=== PATIENT | male | born 1955 | race Caucasian/White ===

== ENCOUNTER 2018-01-07 21:21 | Inpatient (IN) | payer SELFPAY ==
[~2018-01-07 21:21] MED LIST: LIDOCAINE 2% INJ-PF (20 MG/ML) 2 ML AMPUL ONE; PHENYLEPHRINE HCL INJ/PF 10 MG/1 ML SDV ONE; ROCURONIUM BROMIDE INJ 50 MG/5 ML VIAL IV ONE; SUCCINYLCHOLINE CHLORIDE INJ 200 MG/10 ML VIAL ONE
[2018-01-07] MEDS ORDERED: NORMAL SALINE 1000 ML 1,000 ML IV ONE (21:32)
[2018-01-07] MEDS ORDERED: PIPERACILLIN/TAZOBACTAM 3.375 GM VIAL IV ONE (21:32)
--- NOTE | 2018-01-07 21:43 | ER Document Report ---
ED General - General Stated Complaint: BLOOD PRESSURE ISSUES Time Seen by Provider: 01/07/18 21:31 Cannot obtain history due to: Unstable vital signs, Altered mental status Notes: Patient is a 62-year-old male without chronic medical problems who presents with pallor, confusion and hypotension. The patient apparently had an appendectomy at an outpatient center facility with [facility] earlier this morning at approximately 9 AM. He was subsequently discharged. Per EMS, the patient's had reported to them that he was becoming more lethargic and pale throughout the day. She eventually contacted EMS when he was having difficulty responding to her. The patient himself is unable to provide any meaningful history. - Related Data Allergies/Adverse Reactions: No Known Allergies Allergy (Verified 01/07/18 21:50) Past Medical History - General Information source: Emergency Med Personnel Cannot obtain history due to: Unstable vital signs, Altered mental status - Social History Smoking Status: Unknown if Ever Smoked Frequency of alcohol use: None Drug Abuse: None Lives with: Spouse/Significant other Family History: Reviewed & Not Pertinent Review of Systems - Review of Systems Notes: Constitutional: Negative for fever. HENT: Negative for sore throat. Eyes: Negative for visual changes. Cardiovascular: Negative for chest pain. Respiratory: Negative for shortness of breath. Gastrointestinal: Positive for abdominal pain Genitourinary: Negative for dysuria. Musculoskeletal: Positive for diffuse back pain Skin: Negative for rash. Neurological: Negative for headaches, weakness or numbness. 10 point ROS negative except as marked above and in HPI. Physical Exam - Vital signs Vitals: Resp 29 H 01/07/18 21:23 Interpretation: Hypotensive, Tachycardic Notes: PHYSICAL EXAMINATION: GENERAL: Appears extremely ill, pale, diaphoretic and listless. HEAD: Atraumatic, normocephalic. EYES: Pupils equal round and reactive to light, extraocular movements intact, sclera anicteric, conjunctiva are pale. ENT: nares patent, diffuse oropharyngeal pallor. Dry mucous membranes. NECK: Normal range of motion, supple without lymphadenopathy LUNGS: Breath sounds clear to auscultation bilaterally and equal. No wheezes rales or rhonchi. HEART: Regular tachycardia without murmurs ABDOMEN: Distended abdomen, diffusely tender to palpation with rigidity. Diffuse guarding throughout. Consistent with a surgical abdomen. Positive FAST exam in all 3 quadrants. EXTREMITIES: no pitting or edema. No cyanosis. NEUROLOGICAL: No focal neurological deficits. Moves all extremities spontaneously and on command. PSYCH: Lethargic but oriented 3 SKIN: Pale, cool skin Course - Re-evaluation Re-evalutation: 01/07/18 21:35 Patient presents in hypovolemic, hemorrhagic shock. Immediately with the patient's bedside as soon as he came in the door with EMS. I noted immediate that the patient is pale, diaphoretic, listless and tachycardic. EMS reports that his initial systolic blood pressure was 70 systolic. We initially established one additional point of IV access family EMS that are reestablished. I immediately performed a bedside fast examination which showed gross blood in all 3 quadrants on FAST examination. A mass transfusion protocol was immediately initiated. I immediately contacted the surgeon watermelon inspector Dr. Baker and asked him to immediately come to the bedside has the patient is actively exsanguinating and requires immediate surgical intervention. 01/07/18 21:43 Patient continues to be quite listless, tachycardia is improving however with additional. Mass transfusion is being prepared. IV Zosyn was being hung for operative planning. I will continue to reassess the patient at regular intervals. He does not require immediate airway management at this time point. 01/07/18 22:01 Patient is having some mild deterioration of his blood pressure down to 96 and 67, does persist with mild tachycardia at 102 currently. He continues to be lethargic although wakes to voice. He has had one episode of vomiting. Awaiting mass transfusion to arrive. Dr. card is planning to take the patient to the operating room shortly. Will continue to monitor closely. - Vital Signs Vital signs: Temp Pulse Resp BP Pulse Ox 98.2 F 82 22 H 129/74 H 100 01/08/18 00:52 01/08/18 00:52 01/08/18 03:15 01/08/18 03:15 01/08/18 03:15 - Laboratory Result Diagrams: 01/08/18 00:41 01/08/18 01:44 Laboratory results interpreted by me: 01/07/18 01/07/18 01/07/18 21:30 21:31 21:31 WBC 26.1 H RBC 3.19 L Hgb 10.0 L Hct 29.8 L Seg Neuts % (Manual) 87 H Lymphocytes % (Manual) 4 L Abs Neuts (Manual) 22.7 H Abs Monocytes (Manual) 2.3 H POC Glucose 280 H Crossmatch See Detail - EKG Interpretation by Me Additional EKG results interpreted by me: 01/08/18 03:45 Sinus tachycardia. Rate 106. No ST elevations or depressions. QTC is 486. Critical Care Note - Critical Care Note Total time excluding time spent on procedures (mins): 35 Comments: Critical care time spent obtaining history from patient or surrogate, discussions with consultants, development of treatment plan with patient or surrogate, evaluation of patient's response to treatment, examination of patient , ordering and performing treatments and interventions, ordering and review of laboratory studies, re-evaluation of patient's condition, ordering and review of radiographic studies and review of old charts Discharge - Discharge Clinical Impression: Hemorrhagic shock Post-op bleeding Qualifiers: Surgical complication system/body Area: circulatory system Procedure type: non- circulatory Qualified Code(s): I97.620 - Postprocedural hemorrhage of a circulatory system organ or structure following other procedure Altered mental status Qualifiers: Altered mental status type: somnolence Qualified Code(s): R40.0 - Somnolence Condition: Critical Disposition: ADMITTED INPATIENT Admitting Provider: Surgicalist Unit Admitted: OR
[2018-01-07] MEDS ORDERED: FENTANYL CITRATE INJ/PF 100 MCG/2 ML AMPUL ONE ×2 (22:07→22:08)
[2018-01-07 22:08] LABS: HEMATOCRIT 29.8 % (37.9-51.0); MEAN CORPUSCULAR HEMOGLOBIN 31.3 pg (27.0-33.4); MEAN CORPUSCULAR HGB CONC 33.4 g/dL (32.0-36.0); MEAN CORPUSCULAR VOLUME 94 fl (80-97); PLATELET COUNT 289 10^3/uL (150-450); RED BLOOD COUNT 3.19 10^6/uL (4.35-5.55); RED CELL DISTRIBUTION WIDTH 13.5 % (11.5-14.0); WHITE BLOOD COUNT 26.1 10^3/uL (4.0-10.5)
[2018-01-07] MEDS ORDERED: MIDAZOLAM 2 MG/2 ML INJ ONE (22:08)
[2018-01-07] MEDS ORDERED: PROPOFOL INJ 200 MG/20 ML VIAL IV ONE (22:08)
[2018-01-07] MEDS ORDERED: HYDROMORPHONE HCL INJ/PF 2 MG/ML AMPULE ONE (22:09)
[2018-01-07] MEDS ORDERED: KETAMINE HCL INJ 500 MG/10 ML VIAL ONE (22:09)
[2018-01-07] MEDS ORDERED: EPHEDRINE SULFATE INJ 50 MG/1 ML AMPULE ONE (22:21)
[2018-01-07 22:39] LABS: ABSOLUTE MONOCYTES # (MANUAL) 2.3 10^3/uL (0.1-1.4); ABSOLUTE NEUTROPHILS# (MANUAL) 22.7 10^3/uL (1.7-8.2); BASOPHILS % (MANUAL) 0 % (0-2); EOSINOPHILS % (MANUAL) 0 % (0-6); LYMPHOCYTES % (MANUAL) 4 % (13-45); MONOCYTES % (MANUAL) 9 % (3-13); PLATELET COMMENT ADEQUATE; SEGMENTED NEUTROPHILS % (MAN) 87 % (42-78); TOTAL CELLS COUNTED 100; TOXIC GRANULATION SLIGHT
[2018-01-07 23:09] LABS: ALANINE AMINOTRANSFERASE 33 U/L (21-72); ALBUMIN 3.2 g/dL (3.5-5.0); ALKALINE PHOSPHATASE 44 U/L (38-126); ASPARTATE AMINO TRANSFERASE 27 U/L (17-59); BILIRUBIN,DIRECT 0.5 mg/dL (0.0-0.4); BILIRUBIN,TOTAL 0.6 mg/dL (0.2-1.3); BLOOD UREA NITROGEN 19 mg/dL (7-20); CALCIUM 8.5 mg/dL (8.4-10.2); CARBON DIOXIDE 17 mmol/L (22-30); CHLORIDE 105 mmol/L (98-107); GLUCOSE 205 mg/dL (75-110); POTASSIUM 4.1 mmol/L (3.6-5.0); TOTAL PROTEIN 6.1 g/dL (6.3-8.2)
[2018-01-07 23:15] LABS: ANION GAP 21 (5-19); SODIUM 143.2 mmol/L (137-145)
[2018-01-07] MEDS ORDERED: SUGAMMADEX SODIUM 200 MG/2 ML SDV IV ONE (23:31)
[2018-01-08] MEDS ORDERED: ONDANSETRON HCL INJ/PF 4 MG/2 ML SDV IV PRN (00:16)
[2018-01-08] MEDS ORDERED: NORMAL SALINE 1000 ML 1,000 ML IV ONE (00:16)
--- NOTE | 2018-01-08 00:16 | PDOC H&P ---
History of Present Illness Admission Date/PCP: 01/07/18 22:05 Patient complains of: lightheadedness with Nausea History of Present Illness: FEDE DOMINGO is a 62 year old male who had an emergency laparoscopic appendectomy at 9 am today at [facility] in [place]. He was apparently stable when he was discharge at around noontime according to his . However, on the way home patient felt lightheaded and nauseated which got worse at home. Broght to ED by EMT with BP 70 systolic and tachycardic. claims patient was confused when she called 911. Noted to be very pale in the ED and after a liter of IV Fluids BP noted to be 100 sys and patient more oriented but still with nausea. Past Medical History Past Medical History: HE WAS LAST SEEN BY A PHYSICIAN OVER 10 YEARS AGO. Medical History: None Past Surgical History Past Surgical History: Reports: None Social History Smoking Status: Unknown if Ever Smoked Family History Family History: Reviewed & Not Pertinent Parental Family History Reviewed: Yes Children Family History Reviewed: No Sibling(s) Family History Reviewed.: No Medication/Allergy Allergies/Adverse Reactions: No Known Allergies Allergy (Verified 01/07/18 21:50) Review of Systems Constitutional: PRESENT: weakness Eyes: PRESENT: other - NO VISUAL/HEARING CHANGES Cardiovascular: PRESENT: other - NO CHEST PAINS Respiratory: PRESENT: hemoptysis Gastrointestinal: PRESENT: abdominal pain, nausea, vomiting Genitourinary: PRESENT: other - NO DYSURIA Integumentary: PRESENT: other - NO RASH Neurological: PRESENT: confusion, weakness, other - LIGHT HEADEDNESS Physical Exam Vital Signs: Temp Pulse Resp BP Pulse Ox 98.1 F 20 112/61 99 01/07/18 22:18 01/07/18 22:17 01/07/18 22:18 01/07/18 22:17 General appearance: PRESENT: severe distress Head exam: PRESENT: atraumatic Eye exam: PRESENT: conjunctiva pale Mouth exam: PRESENT: dry mucosa Neck exam: PRESENT: full ROM Respiratory exam: PRESENT: clear to auscultation mitch Cardiovascular exam: PRESENT: tachycardia Pulses: PRESENT: other - decrease radial pulse Vascular exam: PRESENT: pallor GI/Abdominal exam: PRESENT: distended, soft, tenderness - diffuse Rectal exam: PRESENT: deferred Extremities exam: PRESENT: full ROM Musculoskeletal exam: PRESENT: full ROM Neurological exam: PRESENT: alert, oriented to person, oriented to place, oriented to time, oriented to situation Psychiatric exam: PRESENT: anxious Skin exam: PRESENT: pallor Results Laboratory Results: 01/07/18 22:10 01/07/18 22:10 Sodium 143.2 Potassium 4.1 Chloride 105 Carbon Dioxide 17 L Anion Gap 21 H BUN 19 Creatinine 1.43 H Est GFR ( Amer) > 60 Est GFR (Non-Af Amer) 50 L Glucose 205 H Calcium 8.5 Total Bilirubin 0.6 AST 27 ALT 33 Alkaline Phosphatase 44 Total Protein 6.1 L Albumin 3.2 L Assessment & Plan - Diagnosis (2) Post-op bleeding Qualifiers: Surgical complication system/body Area: circulatory system Procedure type: non-circulatory Qualified Code(s): I97.620 - Postprocedural hemorrhage of a circulatory system organ or structure following other procedure Is this a current diagnosis for this admission?: Yes - Time Time Spent: 30 to 50 Minutes - Inpatient Certification Medical Necessity: Need For IV Fluids, Need for IV Antibiotics, Need for Surgery - Plan Summary Plan Summary: Transfuse IV antibiotics To OR MAGGIE for laparoscopic control of bleeder
[2018-01-08] MEDS ORDERED: PIPERACILLIN/TAZOBACTAM 3.375 GM VIAL IV SCH (00:30)
[2018-01-08 00:52] LABS: HEMATOCRIT 34.7 % (37.9-51.0); HEMOGLOBIN 11.8 g/dL (13.5-17.0); MEAN CORPUSCULAR HEMOGLOBIN 30.1 pg (27.0-33.4); MEAN CORPUSCULAR HGB CONC 33.9 g/dL (32.0-36.0); PLATELET COUNT 184 10^3/uL (150-450); RED CELL DISTRIBUTION WIDTH 13.9 % (11.5-14.0); WHITE BLOOD COUNT 18.6 10^3/uL (4.0-10.5)
[2018-01-08 00:55] LABS: INTERNATIONAL RATION (INR) 1.12
[2018-01-08 00:56] LABS: PARTIAL THROMBOPLASTIN TIME 34.2 SEC (23.5-35.8)
[2018-01-08 01:15] LABS: MEAN CORPUSCULAR VOLUME 89 fl (80-97)
[2018-01-08 01:17] LABS: ABSOLUTE LYMPHOCYTES# (MANUAL) 0.6 10^3/uL (0.5-4.7); ABSOLUTE MONOCYTES # (MANUAL) 1.1 10^3/uL (0.1-1.4); ABSOLUTE NEUTROPHILS# (MANUAL) 16.9 10^3/uL (1.7-8.2); BASOPHILS % (MANUAL) 0 % (0-2); EOSINOPHILS % (MANUAL) 0 % (0-6); LYMPHOCYTES % (MANUAL) 3 % (13-45); MONOCYTES % (MANUAL) 6 % (3-13); SEGMENTED NEUTROPHILS % (MAN) 91 % (42-78); TOTAL CELLS COUNTED 100
[2018-01-08] MEDS ORDERED: PIPERACILLIN/TAZOBACTAM 3.375 GM VIAL IV PRN (01:19)
[2018-01-08 01:21] LABS: ANISOCYTOSIS SLIGHT; BURR CELLS SLIGHT; PLATELET COMMENT ADEQUATE; PLATELET LARGE PRESENT; TEAR DROP CELLS SLIGHT; TOXIC VACUOLATION PRESENT
[2018-01-08] MEDS ORDERED: PIPERACILLIN SODIUM/TAZOBACTAM 3.375 GM in NORMAL SALINE 100 ML IV ONE (01:30)
--- NOTE | 2018-01-08 01:32 | RADIOLOGY REPORT (SQ) ---
EXAM DESCRIPTION: XR CHEST 1 VIEW CLINICAL HISTORY: 62 years Male, post 0p COMPARISON: None. NUMBER OF VIEWS/TECHNIQUE: 1/AP FINDINGS: Adequate lung volume, clear parenchyma, small effusion/obscuration of the left costophrenic angle, normal cardiac silhouette, and intact bony thorax. IMPRESSION: Small left pleural effusion.
[2018-01-08 02:12] LABS: ANION GAP 14 (5-19); BLOOD UREA NITROGEN 21 mg/dL (7-20); CARBON DIOXIDE 23 mmol/L (22-30); CHLORIDE 109 mmol/L (98-107); GLUCOSE 141 mg/dL (75-110); POTASSIUM 4.9 mmol/L (3.6-5.0); SODIUM 145.8 mmol/L (137-145)
[2018-01-08] MEDS: MORPHINE SULFATE 10 MG/ML INJ IV PRN ×5 (03:59→21:54)
--- NOTE | 2018-01-08 07:15 | OPERATIVE REPORT E ---
Operative Report NAME: FEDE DOMINGO : 1955 AGE: 62Y DATE OF SURGERY: 01/06/18 ROOM: 609 PREOPERATIVE DIAGNOSIS: Bleeding post-laparoscopic appendectomy with hemorrhagic shock. POSTOPERATIVE DIAGNOSIS: Bleeding post-laparoscopic appendectomy with hemorrhagic shock. OPERATION: Diagnostic laparoscopy and control of bleeding. SURGEON: JERI HOANG M.D. ANESTHESIA: General. INDICATIONS: This is a 62-year-old male who underwent laparoscopic appendectomy this morning at 9 a.m. at [facility] in [place]. The patient subsequently discharged 2-3 hours later and appeared to be stable according to his . However, on the way home the patient noted to have nausea and worsening lightheadedness, and then brought to the ED and noted to have blood pressure of 70 systolic. He was given bolus fluids with 1-2 L and the blood pressure went up to about 100 systolic, and remained tachycardic. On the way to the OR, he had a unit of packed cells. DESCRIPTION OF PROCEDURE: After adequate general anesthesia, the patient was placed in a supine position and the abdomen prepped and draped in the usual sterile fashion. Appropriate time-out was called. Next, the incision at the umbilicus was then opened with a 15-blade and the fascia suture also divided with the blade over a hemostat. Following this, a Faustina trocar was inserted into the abdominal cavity through the same site and CO2 insufflated to a pressure of 15 mmHg. The 2 other trocar sites at the suprapubic and the left lower quadrant were all then opened and a 5 mm trocar placed at the suprapubic and a 12 mm in the left lower quadrant under direct vision. The patient noted to have a lot of clots in the abdominal cavity, and these were then suctioned. The patient had about 300-500 mL of blood clots. By the time we got to the area of the appendectomy site, there was a small pumper, which appears to be coming from the appendiceal mesentery. Several clips were placed and the bleeding was controlled. It was further lifted up with the Ana and a couple of clips were placed underneath. The appendiceal stump, however, looks good and without any bleeding. There appears to be another adhesion towards the cecum, and this was left in intact. The cecum does not look distended. Further suctioning of blood clots around the abdominal cavity was then performed. No other evidence of bleeding noted. A small piece of Surgicel and 4 x 4's and *------* was placed to buttress the area where the bleeder was. All the trocars were then removed and the CO2 allowed to come out of the trocars. Prior to removal of the trocars, the abdominal cavity was inspected, including the stomach, and no evidence of obvious abnormalities noted. The stomach though appears to be slightly distended. The patient did have an episode of bloody oropharyngeal catheter drainage, though this appears to be quite relatively small. After all the trocars were removed, the fascial defect at the infraumbilical area was then controlled with a [id number] suture using 0 Vicryl. A single suture at the area of the left lower quadrant was used to close the anterior fascia in a simple fashion. All the skin incisions were then closed with a running subcuticular 4-0 Vicryl and tied. Dermabond was used as a dressing. The patient tolerated procedure well. Needle, instrument, and sponge counts were all correct. Estimated blood loss about 30 mL. The patient did have about 300-500 mL of blood clots in the abdominal cavity. The patient then brought to the intensive care unit in guarded condition. DICTATING PHYSICIAN: JERI HOANG M.D. [id number] WINY#: [id number] ID: [id number] JOB#: [id number] ACCT: [id number] cc:JERI HOANG M.D. >
[2018-01-08 08:06] LABS: ABSOLUTE BASOPHILS # (AUTO) 0.1 10^3/uL (0.0-0.2); ABSOLUTE LYMPHOCYTES (AUTO) 1.1 10^3/uL (0.5-4.7); ABSOLUTE MONOCYTES (AUTO) 1.3 10^3/uL (0.1-1.4); ABSOLUTE NEUT (AUTO) 13.8 10^3/uL (1.7-8.2); BASOPHILS % (AUTO) 0.4 % (0-2); EOSINOPHILS % (AUTO) 0.1 % (0-6); HEMATOCRIT 29.6 % (37.9-51.0); HEMOGLOBIN 10.4 g/dL (13.5-17.0); LYMPHOCYTES % (AUTO) 6.7 % (13-45); MEAN CORPUSCULAR HEMOGLOBIN 31.2 pg (27.0-33.4); MEAN CORPUSCULAR HGB CONC 35.2 g/dL (32.0-36.0); MEAN CORPUSCULAR VOLUME 88 fl (80-97); MONOCYTES % (AUTO) 7.8 % (3-13); PLATELET COUNT 160 10^3/uL (150-450); RED BLOOD COUNT 3.34 10^6/uL (4.35-5.55); RED CELL DISTRIBUTION WIDTH 14.4 % (11.5-14.0); TOTAL CELLS COUNTED % (AUTO) 100 %; WHITE BLOOD COUNT 16.3 10^3/uL (4.0-10.5)
[2018-01-08] MEDS: NORMAL SALINE 1000 ML 1,000 ML IV PRN ×2 (08:56→15:51)
[2018-01-08] MEDS: PIPERACILLIN SODIUM/TAZOBACTAM 3.375 GM in NORMAL SALINE 100 ML IV SCH ×3 (08:56→21:52)
[2018-01-08] MEDS: FAMOTIDINE INJ/PF 20 MG/2 ML SDV IV SCH ×2 (08:58→21:53)
--- NOTE | 2018-01-08 09:01 | EKG REPORT ---
SEVERITY:- ABNORMAL ECG - SINUS TACHYCARDIA PROBABLE LEFT ATRIAL ABNORMALITY BORDERLINE T ABNORMALITIES, ANT-LAT LEADS, CLINICAL CORRELATION NEEDED BORDERLINE PROLONGED QT INTERVAL : Confirmed by: Fred Valdes MD 08-Jan-2018 09:01:07
--- NOTE | 2018-01-08 18:45 | PDOC PROGRESS REPORT ---
Subjective Progress Note for:: 01/08/18 Subjective:: Minimal incisional pains. Feels a lot better post laparoscopic clipping of appendiceal artery bleed last night. Had laparoscopic appendectomy for acute appendicitis yesterday at 9 am at [facility] in [place] [facility]. Discharged apparently stable but patient got light headed and confused on the way home to [place]. Reason For Visit: BLEEDING,POST LAPAROSCOPIC APPENDECTOMY Physical Exam Vital Signs: Temp Pulse Resp BP Pulse Ox 98.6 F 90 26 H 144/66 H 98 01/08/18 18:00 01/08/18 08:41 01/08/18 18:05 01/08/18 18:05 01/08/18 18:05 Intake & Output 01/07/18 01/08/18 01/09/18 06:59 06:59 06:59 Intake Total 2322 4280 Output Total 2350 1100 Balance -28 3180 Weight 90.1 kg Exam: Abdomen is soft with minimal incisional tenderness. All incisions are clean and dry. Denies flatus yet but hungry. Results Laboratory Results: 01/08/18 07:36 01/08/18 01:44 01/07/18 01/08/18 01/08/18 22:10 00:41 00:41 WBC 18.6 H RBC 3.90 L Hgb 11.8 L Hct 34.7 L MCV 89 D MCH 30.1 MCHC 33.9 RDW 13.9 Plt Count 184 Seg Neutrophils % Not Reportable Lymphocytes % Not Reportable Monocytes % Not Reportable Eosinophils % Not Reportable Basophils % Not Reportable Absolute Neutrophils Not Reportable Absolute Lymphocytes Not Reportable Absolute Monocytes Not Reportable Absolute Eosinophils Not Reportable Absolute Basophils Not Reportable Sodium 143.2 Cancelled Potassium 4.1 Cancelled Chloride 105 Cancelled Carbon Dioxide 17 L Cancelled Anion Gap 21 H Cancelled BUN 19 Cancelled Creatinine 1.43 H Cancelled Est GFR ( Amer) > 60 Cancelled Est GFR (Non-Af Amer) 50 L Cancelled Glucose 205 H Cancelled Calcium 8.5 Cancelled Total Bilirubin 0.6 AST 27 ALT 33 Alkaline Phosphatase 44 Total Protein 6.1 L Albumin 3.2 L 01/08/18 01/08/18 01:44 07:36 WBC 16.3 H RBC 3.34 L Hgb 10.4 L Hct 29.6 L MCV 88 MCH 31.2 MCHC 35.2 RDW 14.4 H Plt Count 160 Seg Neutrophils % 85.0 H Lymphocytes % 6.7 L Monocytes % 7.8 Eosinophils % 0.1 Basophils % 0.4 Absolute Neutrophils 13.8 H Absolute Lymphocytes 1.1 Absolute Monocytes 1.3 Absolute Eosinophils 0.0 Absolute Basophils 0.1 Sodium 145.8 H Potassium 4.9 Chloride 109 H Carbon Dioxide 23 Anion Gap 14 BUN 21 H Creatinine 1.18 Est GFR ( Amer) > 60 Est GFR (Non-Af Amer) > 60 Glucose 141 H Calcium 8.0 L Total Bilirubin AST ALT Alkaline Phosphatase Total Protein Albumin Impressions: Chest X-Ray 01/08/18 00:21 IMPRESSION: Small left pleural effusion. Assessment & Plan - Diagnosis (2) Post-op bleeding Qualifiers: Surgical complication system/body Area: circulatory system Procedure type: non-circulatory Qualified Code(s): I97.620 - Postprocedural hemorrhage of a circulatory system organ or structure following other procedure Is this a current diagnosis for this admission?: Yes - Time Time Spent with patient: 15-24 minutes - Plan Summary Plan Summary: Start sips of clears. Continue IV antibiotics. Recheck labs in am. OOB Transfer out of ICU to [facility] Art/Zafar henry
[2018-01-08] MEDS ORDERED: NORMAL SALINE 1000 ML 1,000 ML IV PRN (19:17)
[2018-01-09] MEDS: MORPHINE SULFATE 10 MG/ML INJ IV PRN ×3 (02:04→21:23)
[2018-01-09] MEDS: PIPERACILLIN SODIUM/TAZOBACTAM 3.375 GM in NORMAL SALINE 100 ML IV SCH ×4 (02:07→21:20)
[2018-01-09 05:12] LABS: ALBUMIN 2.7 g/dL (3.5-5.0); ALKALINE PHOSPHATASE 37 U/L (38-126); ASPARTATE AMINO TRANSFERASE 16 U/L (17-59); BILIRUBIN,DIRECT 0.5 mg/dL (0.0-0.4); BLOOD UREA NITROGEN 11 mg/dL (7-20); CALCIUM 8.1 mg/dL (8.4-10.2); GLUCOSE 100 mg/dL (75-110); TOTAL PROTEIN 5.4 g/dL (6.3-8.2)
[2018-01-09 05:29] LABS: ALANINE AMINOTRANSFERASE 33 U/L (21-72); ANION GAP 8 (5-19); CARBON DIOXIDE 23 mmol/L (22-30); CHLORIDE 111 mmol/L (98-107); POTASSIUM 3.7 mmol/L (3.6-5.0); SODIUM 141.8 mmol/L (137-145)
[2018-01-09 06:09] LABS: ABSOLUTE BASOPHILS # (AUTO) 0.1 10^3/uL (0.0-0.2); ABSOLUTE LYMPHOCYTES (AUTO) 1.1 10^3/uL (0.5-4.7); ABSOLUTE MONOCYTES (AUTO) 0.7 10^3/uL (0.1-1.4); ABSOLUTE NEUT (AUTO) 9.4 10^3/uL (1.7-8.2); BASOPHILS % (AUTO) 0.6 % (0-2); EOSINOPHILS % (AUTO) 0.3 % (0-6); HEMATOCRIT 23.2 % (37.9-51.0); LYMPHOCYTES % (AUTO) 9.7 % (13-45); MEAN CORPUSCULAR HGB CONC 34.4 g/dL (32.0-36.0); MEAN CORPUSCULAR VOLUME 90 fl (80-97); MONOCYTES % (AUTO) 6.5 % (3-13); PLATELET COUNT 135 10^3/uL (150-450); RED BLOOD COUNT 2.58 10^6/uL (4.35-5.55); RED CELL DISTRIBUTION WIDTH 14.2 % (11.5-14.0); SEGMENTED NEUTROPHILS % (AUTO) 82.9 % (42-78); TOTAL CELLS COUNTED % (AUTO) 100 %; WHITE BLOOD COUNT 11.3 10^3/uL (4.0-10.5)
[2018-01-09] MEDS ORDERED: KETOROLAC TROMETHAMINE 10 MG TABLET PO PRN (10:07)
--- NOTE | 2018-01-09 10:11 | PDOC PROGRESS REPORT ---
Subjective Progress Note for:: 01/09/18 Subjective:: Sitting up in bed, no acute distress; mildly anxious; remains in ICU Reason For Visit: BLEEDING,POST LAPAROSCOPIC APPENDECTOMY Physical Exam Vital Signs: Temp Pulse Resp BP Pulse Ox 99.4 F 83 15 142/69 H 94 01/09/18 06:00 01/09/18 08:00 01/09/18 09:00 01/09/18 08:41 01/09/18 09:00 Intake & Output 01/08/18 01/09/18 01/10/18 06:59 06:59 06:59 Intake Total 2322 4280 Output Total 2350 1800 Balance - 2480 Weight 90.1 kg 92.8 kg General appearance: PRESENT: other - Mild anxiousness Respiratory exam: PRESENT: other - Diminished breath sounds bilaterally GI/Abdominal exam: PRESENT: other - Mildly distended; some bruising and operative sites; no peritoneal signs; some tenderness right lower quadrant Results Laboratory Results: 01/09/18 05:57 01/09/18 04:33 01/09/18 01/09/18 01/09/18 04:33 04:33 05:57 WBC Cancelled 11.3 H RBC Cancelled 2.58 L Hgb Cancelled 8.0 L D Hct Cancelled 23.2 L MCV Cancelled 90 MCH Cancelled 31.0 MCHC Cancelled 34.4 RDW Cancelled 14.2 H Plt Count Cancelled 135 L Seg Neutrophils % Cancelled 82.9 H Lymphocytes % Cancelled 9.7 L Monocytes % Cancelled 6.5 Eosinophils % Cancelled 0.3 Basophils % Cancelled 0.6 Absolute Neutrophils Cancelled 9.4 H Absolute Lymphocytes Cancelled 1.1 Absolute Monocytes Cancelled 0.7 Absolute Eosinophils Cancelled 0.0 Absolute Basophils Cancelled 0.1 Sodium 141.8 Potassium 3.7 Chloride 111 H Carbon Dioxide 23 Anion Gap 8 BUN 11 Creatinine 0.85 Est GFR ( Amer) > 60 Est GFR (Non-Af Amer) > 60 Glucose 100 Calcium 8.1 L Total Bilirubin 1.0 AST 16 L ALT 33 Alkaline Phosphatase 37 L Total Protein 5.4 L Albumin 2.7 L Impressions: Chest X-Ray 01/08/18 00:21 IMPRESSION: Small left pleural effusion. Assessment & Plan - Diagnosis (1) Post laparoscopic appendectomy bleeding Is this a current diagnosis for this admission?: Yes Plan: Patient remains hemodynamically stable although heart rate in the 90s currently. Clinically he is well perfused and making adequate urine. Hemoglobin down to 8.0; patient has had 2 units of packed cells per record. Recommendations: 1. We will keep patient on full liquids for the moment 2. Reduce narcotic use; increase use of Toradol 3. We will check CBC at 1400; if stable, and patient continues to do well, anticipate transfer to the floor. 4. Attempt to obtain medical records from [facility]
[2018-01-09] MEDS: KETOROLAC TROMETHAMINE INJ/PF 30 MG/1 ML SDV IV PRN ×2 (10:18→15:29)
[2018-01-09] MEDS: FAMOTIDINE INJ/PF 20 MG/2 ML SDV IV SCH ×2 (10:19→21:21)
[2018-01-09 14:11] LABS: HEMATOCRIT 22.1 % (37.9-51.0); MEAN CORPUSCULAR HEMOGLOBIN 31.6 pg (27.0-33.4); MEAN CORPUSCULAR HGB CONC 35.3 g/dL (32.0-36.0); MEAN CORPUSCULAR VOLUME 90 fl (80-97); PLATELET COUNT 135 10^3/uL (150-450); RED BLOOD COUNT 2.47 10^6/uL (4.35-5.55); RED CELL DISTRIBUTION WIDTH 14.6 % (11.5-14.0); WHITE BLOOD COUNT 10.6 10^3/uL (4.0-10.5)
[2018-01-09 14:13] LABS: HEMOGLOBIN 7.8 g/dL (13.5-17.0)
[2018-01-09] MEDS: DOCUSATE SODIUM 100 MG CAPSULE PO SCH (17:14)
[2018-01-10] MEDS: PIPERACILLIN SODIUM/TAZOBACTAM 3.375 GM in NORMAL SALINE 100 ML IV SCH ×2 (02:25→08:45)
[2018-01-10] MEDS: KETOROLAC TROMETHAMINE INJ/PF 30 MG/1 ML SDV IV PRN (02:25)
[2018-01-10] MEDS: DOCUSATE SODIUM 100 MG CAPSULE PO SCH (08:29)
[2018-01-10 09:28] LABS: ABSOLUTE BASOPHILS # (AUTO) 0.1 10^3/uL (0.0-0.2); ABSOLUTE EOSINOPHILS # (AUTO) 0.1 10^3/uL (0.0-0.6); ABSOLUTE LYMPHOCYTES (AUTO) 0.8 10^3/uL (0.5-4.7); ABSOLUTE MONOCYTES (AUTO) 0.5 10^3/uL (0.1-1.4); ABSOLUTE NEUT (AUTO) 7.6 10^3/uL (1.7-8.2); BASOPHILS % (AUTO) 0.6 % (0-2); EOSINOPHILS % (AUTO) 1.4 % (0-6); HEMATOCRIT 21.8 % (37.9-51.0); LYMPHOCYTES % (AUTO) 8.8 % (13-45); MEAN CORPUSCULAR HEMOGLOBIN 31.5 pg (27.0-33.4); MEAN CORPUSCULAR VOLUME 90 fl (80-97); MONOCYTES % (AUTO) 5.6 % (3-13); PLATELET COUNT 135 10^3/uL (150-450); RED BLOOD COUNT 2.42 10^6/uL (4.35-5.55); RED CELL DISTRIBUTION WIDTH 14.1 % (11.5-14.0); SEGMENTED NEUTROPHILS % (AUTO) 83.6 % (42-78); TOTAL CELLS COUNTED % (AUTO) 100 %; WHITE BLOOD COUNT 9.1 10^3/uL (4.0-10.5)
[2018-01-10] MEDS: FAMOTIDINE INJ/PF 20 MG/2 ML SDV IV SCH (09:28)
[2018-01-10 09:42] LABS: ALANINE AMINOTRANSFERASE 27 U/L (21-72); ALBUMIN 3.3 g/dL (3.5-5.0); ALKALINE PHOSPHATASE 40 U/L (38-126); ANION GAP 9 (5-19); ASPARTATE AMINO TRANSFERASE 36 U/L (17-59); BILIRUBIN,DIRECT 0.5 mg/dL (0.0-0.4); BILIRUBIN,TOTAL 0.7 mg/dL (0.2-1.3); BLOOD UREA NITROGEN 10 mg/dL (7-20); CALCIUM 8.7 mg/dL (8.4-10.2); CARBON DIOXIDE 28 mmol/L (22-30); CHLORIDE 109 mmol/L (98-107); GLUCOSE 99 mg/dL (75-110); POTASSIUM 3.8 mmol/L (3.6-5.0); TOTAL PROTEIN 6.6 g/dL (6.3-8.2)
[2018-01-10 09:44] LABS: HEMOGLOBIN 7.6 g/dL (13.5-17.0)
--- NOTE | 2018-01-10 12:43 | PDOC DISCHARGE SUMMARY ---
General - Admit/Disc Date/PCP Admission Date/Primary Care Provider: 01/07/18 22:05 Discharge Date: 01/10/18 - Discharge Diagnosis (1) Hemorrhagic shock Is this a current diagnosis for this admission?: Yes (2) Post laparoscopic appendectomy bleeding Is this a current diagnosis for this admission?: Yes (3) Post-op bleeding Is this a current diagnosis for this admission?: Yes - Additional Information Resuscitation Status: Full Code Discharge Diet: As Tolerated Discharge Activity: Balance Activity w/Rest, No Lifting Over 10 Pounds, No Lifting/Push/Pulling Home Medications: Docusate Sodium [Colace 100 mg Capsule] 100 mg PO BID capsule 01/10/18 History of Present Illness History of Present Illness: FEDE DOMINGO is a 62 year old male who is recently status post laparoscopic appendectomy at another institution. The patient presented to the emergency department in extremis. A FAST exam was found to be positive. The patient was taken to the operating room for emergent exploration. Hospital Course Hospital Course: In the operating room a large volume of hemoperitoneum was identified. Bleeding was found at the appendiceal artery. The bleeding was halted using laparoscopic methods. The patient was sent to the ICU in fair condition. Over the coming 2 days, the patient began ambulating and tolerating a diet. At this time the patient has reached maximal hospital benefit and is fit for discharge. Physical Exam Vital Signs: Temp Pulse Resp BP Pulse Ox 97.9 F 66 20 125/61 96 01/10/18 08:00 01/10/18 08:00 01/10/18 10:00 01/10/18 08:00 01/10/18 09:00 Intake & Output 01/09/18 01/10/18 01/11/18 06:59 06:59 06:59 Intake Total 4280 1612 100 Output Total 1800 1600 Balance 2480 12 100 Weight 92.8 kg 93.5 kg Results Laboratory Results: 01/10/18 09:06 01/10/18 09:06 01/09/18 01/10/18 01/10/18 14:00 09:06 09:06 WBC 10.6 H 9.1 RBC 2.47 L 2.42 L Hgb 7.8 L 7.6 L Hct 22.1 L 21.8 L MCV 90 90 MCH 31.6 31.5 MCHC 35.3 35.0 RDW 14.6 H 14.1 H Plt Count 135 L 135 L Seg Neutrophils % 83.6 H Lymphocytes % 8.8 L Monocytes % 5.6 Eosinophils % 1.4 Basophils % 0.6 Absolute Neutrophils 7.6 Absolute Lymphocytes 0.8 Absolute Monocytes 0.5 Absolute Eosinophils 0.1 Absolute Basophils 0.1 Sodium 146.0 H Potassium 3.8 Chloride 109 H Carbon Dioxide 28 Anion Gap 9 BUN 10 Creatinine 0.80 Est GFR ( Amer) > 60 Est GFR (Non-Af Amer) > 60 Glucose 99 Calcium 8.7 Total Bilirubin 0.7 AST 36 ALT 27 Alkaline Phosphatase 40 Total Protein 6.6 Albumin 3.3 L Impressions: Chest X-Ray 01/08/18 00:21 IMPRESSION: Small left pleural effusion. Qualifiers - * PATIENT BEING DISCHARGED WITH ANY OF THE FOLLOWING DIAGNOSIS: No Plan Discharge Plan: Discharge home. Diet: As tolerated. Activity: Nonstrenuous 2 weeks, no lifting more than 10 pounds 2 weeks. Follow-up with me in 2 weeks. Time Spent: Less than 30 Minutes
[2018-01-10 12:49] VITALS: BP 150/68
== END 2018-01-10 13:30 | disposition home or self-care (01) | DRG 907 ==
LOC: ER 21:21 → EH 22:05 → ICU 01-08 00:02
PROVIDERS: ADMIT Surgery; ATTEND Surgery
PROC: 30233N1 Transfusion of Nonautologous Red Blood Cells into Peripheral Vein, Percutaneous Approach (ICD-10-PCS; 2018-01-07)
PROC: 0W3P3ZZ Control Bleeding in Gastrointestinal Tract, Percutaneous Approach (ICD-10-PCS; principal; 2018-01-07 23:15)
DX: K91.841 Postprocedural hemorrhage of a digestive system organ or structure following other procedure (principal); K66.1 Hemoperitoneum; T81.19XA Other postprocedural shock, initial encounter; I95.1 Orthostatic hypotension; F44.89 Other dissociative and conversion disorders; Y83.6 Removal of other organ (partial) (total) as the cause of abnormal reaction of the patient, or of later complication, without mention of misadventure at the time of the procedure; Y92.810 Car as the place of occurrence of the external cause
CPT/HCPCS: 36415; 36430; 71045; 80048; 80053; 82962; 840; 85025; 85027; 85610; 85730; 86850; 86900; 86901; 86920; 93005; 93010; 94799; 96360; 99291; J0330; J1170; J1885; J2250; J2270; J2370; J2405; J2543; J2704; J3010; J3490; J7030; P9016; S0028

== ENCOUNTER → 2018-01-19 | Outpatient (CLI) | payer SELFPAY ==
[2018-01-19 16:49] LABS: APPEARANCE,URINE CLEAR; BILIRUBIN,URINE NEGATIVE (NEGATIVE); COLOR,URINE YELLOW; GLUCOSE, URINE NEGATIVE (NEGATIVE); KETONES,URINE NEGATIVE (NEGATIVE); LEUKOCYTE ESTERASE,URINE NEGATIVE (NEGATIVE); NITRITE,URINE NEGATIVE (NEGATIVE); PROTEIN,URINE NEGATIVE (NEGATIVE); URINE SPECIFIC GRAVITY 1.017; UROBILINOGEN,URINE NEGATIVE mg/dL (<2.0)
[2018-01-19 16:52] LABS: ABSOLUTE BASOPHILS # (AUTO) 0.1 10^3/uL (0.0-0.2); ABSOLUTE EOSINOPHILS # (AUTO) 0.1 10^3/uL (0.0-0.6); ABSOLUTE LYMPHOCYTES (AUTO) 1.4 10^3/uL (0.5-4.7); ABSOLUTE MONOCYTES (AUTO) 1.1 10^3/uL (0.1-1.4); ABSOLUTE NEUT (AUTO) 14.5 10^3/uL (1.7-8.2); BASOPHILS % (AUTO) 0.6 % (0-2); EOSINOPHILS % (AUTO) 0.6 % (0-6); HEMATOCRIT 30.9 % (37.9-51.0); HEMOGLOBIN 10.4 g/dL (13.5-17.0); MEAN CORPUSCULAR HEMOGLOBIN 29.6 pg (27.0-33.4); MEAN CORPUSCULAR HGB CONC 33.8 g/dL (32.0-36.0); MEAN CORPUSCULAR VOLUME 87 fl (80-97); MONOCYTES % (AUTO) 6.4 % (3-13); PLATELET COUNT 529 10^3/uL (150-450); RED BLOOD COUNT 3.53 10^6/uL (4.35-5.55); RED CELL DISTRIBUTION WIDTH 13.9 % (11.5-14.0); SEGMENTED NEUTROPHILS % (AUTO) 84.4 % (42-78); TOTAL CELLS COUNTED % (AUTO) 100 %; WHITE BLOOD COUNT 17.2 10^3/uL (4.0-10.5)
== END ==
LOC: OD 15:45
PROVIDERS: ATTEND Surgery
DX: R10.30 Lower abdominal pain, unspecified (principal); R30.0 Dysuria
CPT/HCPCS: 36415; 81001; 85025

== ENCOUNTER → 2018-01-23 | Outpatient (CLI) | payer SELFPAY ==
[2018-01-23 12:46] LABS: ABSOLUTE BASOPHILS # (AUTO) 0.1 10^3/uL (0.0-0.2); ABSOLUTE LYMPHOCYTES (AUTO) 0.7 10^3/uL (0.5-4.7); ABSOLUTE NEUT (AUTO) 11.7 10^3/uL (1.7-8.2); BASOPHILS % (AUTO) 0.5 % (0-2); EOSINOPHILS % (AUTO) 0.1 % (0-6); HEMATOCRIT 28.5 % (37.9-51.0); HEMOGLOBIN 9.8 g/dL (13.5-17.0); LYMPHOCYTES % (AUTO) 5.5 % (13-45); MEAN CORPUSCULAR HEMOGLOBIN 29.8 pg (27.0-33.4); MEAN CORPUSCULAR HGB CONC 34.4 g/dL (32.0-36.0); MEAN CORPUSCULAR VOLUME 87 fl (80-97); MONOCYTES % (AUTO) 7.7 % (3-13); PLATELET COUNT 551 10^3/uL (150-450); RED BLOOD COUNT 3.29 10^6/uL (4.35-5.55); RED CELL DISTRIBUTION WIDTH 14.2 % (11.5-14.0); SEGMENTED NEUTROPHILS % (AUTO) 86.2 % (42-78); TOTAL CELLS COUNTED % (AUTO) 100 %; WHITE BLOOD COUNT 13.6 10^3/uL (4.0-10.5)
== END ==
LOC: OD 11:50
PROVIDERS: ATTEND Physician Assistant Surgical
DX: D50.0 Iron deficiency anemia secondary to blood loss (chronic) (principal)
CPT/HCPCS: 36415; 85025

== ENCOUNTER 2018-01-24 09:07 | Inpatient (IN) | payer SELFPAY ==
--- NOTE | 2018-01-24 12:16 | RADIOLOGY REPORT (SQ) ---
EXAM DESCRIPTION: CT ABD/PELVIS WITH IV ORAL COMPLETED DATE/TIME: 01/24/2018 11:39 am REASON FOR STUDY: GENERALIZED ABDOMINAL PAIN R10.84 GENERALIZED ABDOMINAL PAIN D50.0 IRON DEFICIEN CY ANEMIA SECONDARY TO BLOOD LOSS (CHRONI Z90.49 ACQUIRED ABSENCE OF OTHER SPECIFIED PARTS OF DIGEST IV COMPARISON: None. TECHNIQUE: CT scan of the abdomen and pelvis performed using helical scanning technique with dynamic intravenous contrast injection. Patient drank oral contrast. Images reviewed with lung, soft tissue , and bone windows. Reconstructed coronal and sagittal MPR images reviewed. Delayed images for evalua tion of the urinary system also acquired. All images stored on PACS. All CT scanners at this facility use dose modulation, iterative reconstruction, and/or weight based d osing when appropriate to reduce radiation dose to as low as reasonably achievable (ALARA). [facility]: Dose Right [facility]: CareDose [facility]: Dose Right [facility]: Teradose 4D [facility]: Loco2 CONTRAST TYPE AND DOSE: contrast/concentration: Isovue 370.00 mg/ml; Total Contrast Delivered: 89.0 ml; Total Saline Delivered: 70.0 ml RENAL FUNCTION: Creatinine 0.8 RADIATION DOSE: CT Rad equipment meets quality standard of care and radiation dose reduction techniq ues were employed. CTDIvol: 8.4 - 9.8 mGy. DLP: 959 mGy-cm.. LIMITATIONS: None. FINDINGS: A peripheral rim enhancing abscess cavity is present in the right lower quadrant extending down into the pelvic cul-de-sac. This measures 10 cm craniocaudad by 10 cm transverse by 7 cm AP, b est shown on sagittal image 37 and coronal images 33-54. Surgical clips in the right lower quadrant post appendectomy are evident on coronal images 35 through 41. There is adjacent bowel wall thickening of small bowel without evidence of bowel obstruction. No free intraperitoneal air or fluid is seen. This report was called to Dr. Cobb 1130 hours, 01/24/2018. Percutaneous drainage of this abscess is planned for later today. LOWER CHEST: No significant findings. No nodules or infiltrates. LIVER: Normal size. No masses. No dilated ducts. SPLEEN: Normal size. No focal lesions. PANCREAS: No masses. No significant calcifications. No adjacent inflammation or peripancreatic fluid collections. Pancreatic duct not dilated. GALLBLADDER: No identified stones by CT criteria. No inflammatory changes to suggest cholecystitis. ADRENAL GLANDS: No significant masses or asymmetry. RIGHT KIDNEY AND URETER: No solid masses. No significant calcifications. No hydronephrosis or hyd roureter. LEFT KIDNEY AND URETER: No solid masses. No significant calcifications. No hydronephrosis or hydr oureter. AORTA AND VESSELS: No aneurysm. No dissection. Renal arteries, SMA, celiac without stenosis. RETROPERITONEUM: No retroperitoneal adenopathy, hemorrhage or masses. BOWEL AND PERITONEAL CAVITY: Abscess cavity in the right lower quadrant extending down into the pelvi c cul-de-sac. Patient drank oral contrast. Adjacent to the abscess, there are thick walled small waqas wel loops, best shown on axial images 58-68, without small bowel obstruction. Remainder the peritone al space and gastrointestinal tract is otherwise unremarkable. APPENDIX: Post appendectomy abscess as above PELVIS: Abscess as above. Bladder prostate rectum unremarkable. ABDOMINAL WALL: No masses. No hernias. BONES: No significant or acute findings. OTHER: No other significant finding. IMPRESSION: Abscess cavity in the right lower quadrant extending down into the pelvic cul-de-sac. TECHNICAL DOCUMENTATION: JOB ID: [id number] Quality ID # [id number]: Final reports with documentation of one or more dose reduction techniques (e.g., Au tomated exposure control, adjustment of the mA and/or kV according to patient size, use of iterative reconstruction technique) 2010 [employer]- All Rights Reserved Reading location - IP/workstation name: [email or web address]
[2018-01-24] MEDS ORDERED: ACETAMINOPHEN 325 MG TABLET PO PRN (12:37)
[2018-01-24] MEDS ORDERED: ACETAMINOPHEN 650 MG SUPP.RECT PR PRN (12:37)
[2018-01-24] MEDS ORDERED: RINGERS SOLUTION,LACTATED 1,000 ML IV PRN (12:39)
[2018-01-24] MEDS ORDERED: IPRATROPIUM/ALBUTEROL 0.5-2.5 MG/3 ML AMPUL NEB PRN (12:50)
[2018-01-24] MEDS ORDERED: ONDANSETRON HCL INJ/PF 4 MG/2 ML SDV IV PRN (12:50)
[2018-01-24] MEDS ORDERED: DEXTROSE 50%-WATER 25 GM/50 ML DISP.SYRIN IV PRN ×2 (12:50)
[2018-01-24] MEDS ORDERED: GLUCAGON,HUMAN RECOMB 1 MG INJ SUBCUT PRN (12:50)
[2018-01-24] MEDS ORDERED: DEXTROSE 40% GEL 15 GM TUBE PO PRN ×2 (12:50)
[2018-01-24] MEDS ORDERED: PIPERACILLIN/TAZOBACTAM 3.375 GM VIAL IV SCH (13:00)
[2018-01-24 13:32] LABS: ABSOLUTE BASOPHILS # (AUTO) 0.1 10^3/uL (0.0-0.2); ABSOLUTE EOSINOPHILS # (AUTO) 0.1 10^3/uL (0.0-0.6); ABSOLUTE LYMPHOCYTES (AUTO) 0.6 10^3/uL (0.5-4.7); ABSOLUTE MONOCYTES (AUTO) 0.9 10^3/uL (0.1-1.4); BASOPHILS % (AUTO) 0.8 % (0-2); EOSINOPHILS % (AUTO) 0.5 % (0-6); HEMATOCRIT 26.7 % (37.9-51.0); HEMOGLOBIN 9.1 g/dL (13.5-17.0); LYMPHOCYTES % (AUTO) 6.5 % (13-45); MEAN CORPUSCULAR HEMOGLOBIN 29.4 pg (27.0-33.4); MEAN CORPUSCULAR HGB CONC 34.2 g/dL (32.0-36.0); MEAN CORPUSCULAR VOLUME 86 fl (80-97); MONOCYTES % (AUTO) 8.9 % (3-13); PLATELET COUNT 477 10^3/uL (150-450); SEGMENTED NEUTROPHILS % (AUTO) 83.3 % (42-78); TOTAL CELLS COUNTED % (AUTO) 100 %; WHITE BLOOD COUNT 9.6 10^3/uL (4.0-10.5)
[2018-01-24 13:58] LABS: ALBUMIN 3.5 g/dL (3.5-5.0); ANION GAP 14 (5-19); BLOOD UREA NITROGEN 10 mg/dL (7-20); CALCIUM 9.2 mg/dL (8.4-10.2); CARBON DIOXIDE 26 mmol/L (22-30); CHLORIDE 99 mmol/L (98-107); GLUCOSE 95 mg/dL (75-110); PHOSPHORUS 4.5 mg/dL (2.5-4.5); POTASSIUM 4.4 mmol/L (3.6-5.0); SODIUM 138.6 mmol/L (137-145)
[2018-01-24] MEDS ORDERED: PIPERACILLIN SODIUM/TAZOBACTAM 3.375 GM in NORMAL SALINE 100 ML IV ONE (14:00)
[2018-01-24] MEDS ORDERED: VANCOMYCIN HCL INJ 500 MG VIAL IV SCH (14:00)
[2018-01-24] MEDS ORDERED: LIDOCAINE 1% INJ-PF (10 MG/ML) 30 ML SDV ONE (14:06)
[2018-01-24] MEDS ORDERED: MIDAZOLAM 2 MG/2 ML INJ ONE (14:06)
[2018-01-24] MEDS ORDERED: FENTANYL CITRATE INJ/PF 100 MCG/2 ML AMPUL ONE ×2 (14:06→14:09)
--- NOTE | 2018-01-24 15:44 | RADIOLOGY REPORT (SQ) ---
EXAM DESCRIPTION: CT GUIDED PERCUT DRAIN W/CATH COMPLETED DATE/TIME: 01/24/2018 3:23 pm REASON FOR STUDY: intra-abdominal abscess R10.84 GENERALIZED ABDOMINAL PAIN D50.0 IRON DEFICIENCY ANEMIA SECONDARY TO BLOOD LOSS (CHRONI Z90.49 ACQUIRED ABSENCE OF OTHER SPECIFIED PARTS OF DIGESTIV COMPARISON: CT abdomen pelvis 01/24/2018 TECHNIQUE: After obtaining informed consent and explaining the risks and benefits of conscious sedat ion,the patient agreed to the procedure. The patient was brought to the CT suite and was placed prone on the CT gurney. The patient was prepped and draped in the usual sterile fashion . Axial images we re obtained for targeting of thepelvic abscess. An appropriate access site was selected. IV conscious sedation was administered and physician direction by the registered nurse using 2 milligrams of Vers ed and 200 micrograms of fentanyl. Physiologic monitoring was provided before, during, and after rowdy tion. The total sedation time was 55 minutes. Documentation face to face time, the performing proceduralist, spent monitoring the patient: 20minute s. Noncontrasted CT of the liver was performed to localize an approach for the pelvic abscess drainage from the left trans gluteal approach. A percutaneous site was marked. Time out was performed. After skin prep and local lidocaine for skin and deep tissue anesthesia, an 18 gauge 15 cm needle wa s used to access the pelvic abscess from a left trans gluteal approach. Needle placement yielded fou l-smelling liquified hematoma. A sample of this material was sent for Gram stain, culture and sensit ivity. A 0.38 guidewire was placed through the 18 gauge needle into the abscess cavity, the tract dilated wi th a 10 Cymraes dilator, and a 10 Cymraes locking pigtail catheter was placed in the pelvic abscess cav ity coursing up towards the right lower quadrant. Catheter was secured with locking pigtail, and the adhesive device on the skin. Catheter was placed to an accordion suction bag with prompt return of 250 mL of purulent fluid. Post procedure CT demonstrates good placement of the pigtail catheter in t he right lower quadrant/ pelvic abscess. No immediate postprocedure complications. Total of 16.[address] fluoro was used. 93 CT Fluoroscopic images were obtained and saved to PACS. All CT scanners at this facility use dose modulation, iterative reconstruction, and/or weight based d osing when appropriate to reduce radiation dose to as low as reasonably achievable (ALARA). [facility]: Dose Right [facility]: CareDose [facility]: Dose Right [facility]: Teradose 4D [facility]: Heekya RADIATION DOSE: CT Rad equipment meets quality standard of care and radiation dose reduction techniq ues were employed. CTDIvol: 4.0 - 18.4 mGy. DLP: 1396 mGy-cm. mGy. LIMITATIONS: None. FINDINGS: CT guided trans gluteal pelvic abscess drainage with 10 Cymraes locking pigtail catheter, w ith IV conscious sedation. IMPRESSION: CT GUIDED PELVIC ABSCESS DRAINAGE CATHETER PLACEMENT. NO IMMEDIATE COMPLICATIONS. IV CONSCIOUS SEDATION COMMENT: Patient medication list reviewed:Yes- Quality ID# [id number]:Eligible professional attests to docu menting in the medical record they obtained, updated, or reviewed the patient's current medications.. Quality ID 145: Final reports for procedures using fluoroscopy that document radiation exposure erika naldo, or exposure time and number of fluorographic images (if radiation exposure indices are not avail able) TECHNICAL DOCUMENTATION: JOB ID: [id number] Quality ID # [id number]: Final reports with documentation of one or more dose reduction techniques (e.g., A utomated exposure control, adjustment of the mA and/or kV according to patient size, use of iterative reconstruction technique) 2010 [employer]- All Rights Reserved Reading location - IP/workstation name: [email or web address]
[2018-01-24] MEDS: MORPHINE SULFATE 10 MG/ML INJ IV PRN (15:57)
[2018-01-24] MEDS: FENTANYL CITRATE INJ/PF 100 MCG/2 ML AMPUL IV PRN ×2 (16:39→21:35)
[2018-01-24] MEDS: METRONIDAZOLE 500 MG/NS RTU 100 ML IV SCH ×2 (18:01→21:38)
[2018-01-24] MEDS: PIPERACILLIN SODIUM/TAZOBACTAM 3.375 GM in NORMAL SALINE 100 ML IV SCH ×2 (18:18→23:32)
[2018-01-24] MEDS ORDERED: KETOROLAC TROMETHAMINE INJ/PF 30 MG/1 ML SDV ONE (18:49)
--- NOTE | 2018-01-24 18:56 | PDOC H&P ---
History of Present Illness Admission Date/PCP: 01/24/18 14:28 CHANCE YU MD Patient complains of: Abdominal pain and fatigue and fevers History of Present Illness: FEDE DOMINGO is a 62 year old male With past medical history of laparoscopic appendectomy performed at [facility] , and recent admission and discharge on 01/10/2018 for hemorrhagic shock secondary to bleeding appendiceal artery. At that time he spent multiple days in the ICU and was doing well. Was discharged home and states that for the first several days he was feeling well and then after 3 days at home he started to feel fatigued and tired and noticed that his temperature was periodically elevated ranging from 101-102. He communicated this back to the surgery group and received a CT of his abdomen and pelvis today which showed significant pelvic abscess. Medicine agreed to admit the patient for drain placement by interventional radiology and escalation of antibiotics and close monitoring. Past Medical History Past Medical History: History of hemorrhagic shock secondary to laparoscopic appendectomy performed at [facility]. Psychiatric Medical History: Denies: Depression Hematology: Reports: Anemia Past Surgical History Past Surgical History: Reports: Appendectomy Social History Smoking Status: Former Smoker Number of Years Smokin Frequency of Alcohol Use: Occasional Hx Recreational Drug Use: Yes Drugs: Marijuana Hx Prescription Drug Abuse: No Family History Family History: Reviewed & Not Pertinent Parental Family History Reviewed: Yes Children Family History Reviewed: No Sibling(s) Family History Reviewed.: No Medication/Allergy Home Medications: Docusate Sodium [Colace 100 mg Capsule] 100 mg PO BID capsule 01/10/18 Hydrocodone/Acetaminophen [Hydrocodon-Acetaminophen 5-325] 1 each PO Q6HP PRN Multivitamin/Iron/Folic Acid [One Daily Multivitamin-Iron Tb] 1 each PO DAILY Psyllium Seed [Metamucil-Sf Powder 5.85 gm Packet] 1 packet PO ASDIR PRN MDD 14- DAY CLEANSE 01/24/18 Simethicone [Gas-X Ultra Strength] 180 mg PO BIDP PRN 01/24/18 Allergies/Adverse Reactions: No Known Allergies Allergy (Verified 01/07/18 21:50) Review of Systems Constitutional: PRESENT: anorexia, fatigue, fever(s), night sweats, weakness Eyes: ABSENT: visual disturbances Ears: ABSENT: hearing changes Nose, Mouth, and Throat: ABSENT: mouth pain, sore throat Cardiovascular: ABSENT: chest pain, edema, palpitations Respiratory: ABSENT: cough, hemoptysis Gastrointestinal: ABSENT: constipation, hematemesis, nausea, vomiting Genitourinary: ABSENT: dysuria, hematuria Musculoskeletal: ABSENT: back pain, joint swelling Integumentary: ABSENT: lesions, pruritus Neurological: ABSENT: focal weakness, frequent falls, numbness, paresthesias Psychiatric: ABSENT: anxiety, depression, hallucinations Endocrine: ABSENT: cold intolerance, heat intolerance, polydipsia Hematologic/Lymphatic: ABSENT: easy bruising, lymphadenopathy Allergic/Immunologic: ABSENT: seasonal rhinorrhea Physical Exam Vital Signs: Temp Pulse Resp BP Pulse Ox 98.4 F 72 18 149/68 H 99 01/24/18 15:49 01/24/18 15:49 01/24/18 15:49 01/24/18 15:49 01/24/18 15:49 Intake & Output 01/23/18 01/24/18 01/25/18 06:59 06:59 06:59 Weight 81.647 kg General appearance: PRESENT: cooperative, mild distress Head exam: PRESENT: atraumatic, normocephalic Eye exam: PRESENT: EOMI, PERRLA Ear exam: PRESENT: normal external ear exam. ABSENT: bleeding Mouth exam: PRESENT: moist, neck supple Throat exam: ABSENT: tonsillar exudate, tonsillogmegaly Neck exam: PRESENT: full ROM. ABSENT: JVD, tenderness, thyromegaly Respiratory exam: ABSENT: accessory muscle use, rales, rhonchi, wheezes Cardiovascular exam: PRESENT: RRR, +S1, +S2 Pulses: PRESENT: normal radial pulses, normal dorsalis pedis pul GI/Abdominal exam: PRESENT: hypoactive bowel sounds, soft, tenderness. ABSENT: ascites, diminished bowel sounds, distended, rigid Extremities exam: ABSENT: joint swelling, pedal edema Musculoskeletal exam: PRESENT: full ROM, normal inspection Neurological exam: PRESENT: alert, oriented to person, oriented to place, oriented to time, oriented to situation Psychiatric exam: PRESENT: appropriate affect. ABSENT: agitated, anxious, manic Focused psych exam: ABSENT: delusional, paranoid, pressured speech Skin exam: PRESENT: normal color. ABSENT: mottled, pallor Results Laboratory Results: 01/24/18 13:17 01/24/18 13:17 01/24/18 01/24/18 13:17 13:17 WBC 9.6 RBC 3.10 L Hgb 9.1 L Hct 26.7 L MCV 86 MCH 29.4 MCHC 34.2 RDW 14.0 Plt Count 477 H Seg Neutrophils % 83.3 H Lymphocytes % 6.5 L Monocytes % 8.9 Eosinophils % 0.5 Basophils % 0.8 Absolute Neutrophils 8.0 Absolute Lymphocytes 0.6 Absolute Monocytes 0.9 Absolute Eosinophils 0.1 Absolute Basophils 0.1 Sodium 138.6 Potassium 4.4 Chloride 99 Carbon Dioxide 26 Anion Gap 14 BUN 10 Creatinine 0.76 Est GFR ( Amer) > 60 Est GFR (Non-Af Amer) > 60 Glucose 95 Calcium 9.2 Phosphorus 4.5 Magnesium 2.2 Albumin 3.5 Impressions: Percutaneous Drainage 01/24/18 00:00 IMPRESSION: CT GUIDED PELVIC ABSCESS DRAINAGE CATHETER PLACEMENT. NO IMMEDIATE COMPLICATIONS. IV CONSCIOUS SEDATION Abdomen/Pelvis CT 01/24/18 09:17 IMPRESSION: Abscess cavity in the right lower quadrant extending down into the pelvic cul-de-sac. Assessment & Plan - Diagnosis (1) Intra-abdominal abscess Is this a current diagnosis for this admission?: Yes Plan: Patient with recent laparoscopic appendectomy performed at [facility]. Presented here for admission in December with hemorrhagic shock secondary to this laparoscopic appendectomy. Patient was doing well and discharged on 01/10/2018, but states that he progressively became more fatigued and tired and his abdomen became more painful. Describes a diffuse lower lower right and left quadrant abdominal pain. Describes undulating fevers with elevations to 101-102. Presents for evaluation and found to have CT abdomen pelvis positive for a pelvic abscess. Interventional radiology was able to place a drain successfully in this patient today. Patient was started on broad-spectrum antibiotic coverage including Flagyl, Zosyn, vancomycin. Drainage was sent for culture, blood cultures 2 have been taken. Patient will be monitored closely by both medical and surgical teams. At present he has stable vitals. (2) Inadequate pain control Is this a current diagnosis for this admission?: Yes Plan: Status post procedure of drain placement patient had uncontrolled pain around catheter placement site. Patient was given IV fentanyl, IV morphine, and ice packs. - Time Time Spent: 30 to 50 Minutes - Inpatient Certification Based on my medical assessment, after consideration of the patient's comorbidities, presenting symptoms, or acuity I expect that the services needed warrant INPATIENT care.: Yes I certify that my determination is in accordance with my understanding of Medicare's requirements for reasonable and necessary INPATIENT services [42 CFR 412.3e].: Yes - Plan Summary Plan Summary: Patient will need multiple days of IV antibiotic support, adjustment based on culture results, continue drainage of his pelvic abscess. Close monitoring in the hospital needed to prevent sepsis and septic shock.
[2018-01-24] MEDS: VANCOMYCIN HCL 1,000 MG in DEXTROSE 5%-WATER 250 ML IV SCH (18:57)
[2018-01-24] MEDS ORDERED: HYDROCODONE/ACETAMINOPHEN 5-325 MG TABLET PO PRN (18:58)
[2018-01-24] MEDS ORDERED: HYDRALAZINE HCL INJ/PF 20 MG/1 ML SDV IV PRN (18:58)
[2018-01-24] MEDS ORDERED: FENTANYL 25 MCG/HR PATCH.TD72 TD SCH (20:00)
[2018-01-25] MEDS: MORPHINE SULFATE 10 MG/ML INJ IV PRN ×4 (01:03→18:30)
[2018-01-25] MEDS: VANCOMYCIN HCL 1,000 MG in DEXTROSE 5%-WATER 250 ML IV SCH ×2 (01:18→10:32)
--- NOTE | 2018-01-25 01:46 | PDOC CONSULTATION ---
History of Present Illness Admission Date/PCP: 01/24/18 14:28 CHANCE YU MD Patient complains of: Fever and malaise History of Present Illness: FEDE DOMINGO is a 62 year old male in usual state of excellent health up until 2 weeks ago when he was diagnosed with appendicitis underwent laparoscopic appendectomy at an outside hospital. Soon after discharge he was readmitted to our hospital with evidence of hemorrhagic shock. Patient underwent laparoscopic exploration was noted with arterial bleed that was controlled. He did well after this procedure and was subsequently discharged however over the past several days he has had some generalized weakness and malaise along with fever. He underwent a CT scan which demonstrated a pelvic abscess which was drained by radiology. It was consistent with infected hematoma. The radiologist did not think that it appeared feculent. Other than pain at the drain entrance point, patient has minimal abdominal discomfort. He has had a poor appetite but has been tolerating clear liquids during current hospitalization. Past Medical History Medical History: None Cardiac Medical History: Reports: None Psychiatric Medical History: Denies: Depression Hematology: Reports: Anemia Past Surgical History Past Surgical History: Reports: Appendectomy Social History Smoking Status: Former Smoker Number of Years Smokin Frequency of Alcohol Use: Occasional Hx Recreational Drug Use: Yes Drugs: Marijuana Hx Prescription Drug Abuse: No Family History Family History: Reviewed & Not Pertinent Parental Family History Reviewed: No Children Family History Reviewed: No Sibling(s) Family History Reviewed.: No Medication/Allergy Home Medications: Docusate Sodium [Colace 100 mg Capsule] 100 mg PO BID capsule 01/10/18 Hydrocodone/Acetaminophen [Hydrocodon-Acetaminophen 5-325] 1 each PO Q6HP PRN Multivitamin/Iron/Folic Acid [One Daily Multivitamin-Iron Tb] 1 each PO DAILY Psyllium Seed [Metamucil-Sf Powder 5.85 gm Packet] 1 packet PO ASDIR PRN MDD 14- DAY CLEANSE 01/24/18 Simethicone [Gas-X Ultra Strength] 180 mg PO BIDP PRN 01/24/18 Allergies/Adverse Reactions: No Known Allergies Allergy (Verified 01/07/18 21:50) Physical Exam Vital Signs: Temp Pulse Resp BP Pulse Ox 98.6 F 68 18 116/68 96 01/25/18 00:00 01/25/18 00:00 01/25/18 00:00 01/25/18 00:00 01/25/18 00:00 Intake & Output 01/23/18 01/24/18 01/25/18 06:59 06:59 06:59 Weight 81.647 kg General appearance: PRESENT: no acute distress, cooperative Eye exam: PRESENT: conjunctiva pink Respiratory exam: PRESENT: clear to auscultation mitch Cardiovascular exam: PRESENT: RRR GI/Abdominal exam: PRESENT: other - Soft, protuberant but patient states that it is his normal size abdomen. Mild tenderness to palpation in the lower abdomen without peritoneal signs. Wounds are clean dry and intact with no erythema. Some bruising. Extremities exam: PRESENT: other - No swelling and no tenderness Neurological exam: PRESENT: alert, awake Psychiatric exam: PRESENT: appropriate affect Results Laboratory Results: 01/24/18 13:17 01/24/18 13:17 01/24/18 01/24/18 01/24/18 13:17 13:17 19:34 WBC 9.6 RBC 3.10 L Hgb 9.1 L Hct 26.7 L MCV 86 MCH 29.4 MCHC 34.2 RDW 14.0 Plt Count 477 H Seg Neutrophils % 83.3 H Lymphocytes % 6.5 L Monocytes % 8.9 Eosinophils % 0.5 Basophils % 0.8 Absolute Neutrophils 8.0 Absolute Lymphocytes 0.6 Absolute Monocytes 0.9 Absolute Eosinophils 0.1 Absolute Basophils 0.1 Sodium 138.6 Potassium 4.4 Chloride 99 Carbon Dioxide 26 Anion Gap 14 BUN 10 Creatinine 0.76 Est GFR ( Amer) > 60 Est GFR (Non-Af Amer) > 60 Glucose 95 Lactic Acid 0.8 Calcium 9.2 Phosphorus 4.5 Magnesium 2.2 Albumin 3.5 Impressions: Percutaneous Drainage 01/24/18 00:00 IMPRESSION: CT GUIDED PELVIC ABSCESS DRAINAGE CATHETER PLACEMENT. NO IMMEDIATE COMPLICATIONS. IV CONSCIOUS SEDATION Abdomen/Pelvis CT 01/24/18 09:17 IMPRESSION: Abscess cavity in the right lower quadrant extending down into the pelvic cul-de-sac. Assessment & Plan - Diagnosis (1) Infected hematoma following procedure Is this a current diagnosis for this admission?: Yes Plan: Status post CT-guided drainage. Patient looks well after the procedure. Continue IV antibiotics until the cultures return. Will advance diet in the morning if he continues to improve. Surgicalist service will follow.
[2018-01-25] MEDS: FENTANYL CITRATE INJ/PF 100 MCG/2 ML AMPUL IV PRN ×2 (05:14→10:55)
[2018-01-25] MEDS: METRONIDAZOLE 500 MG/NS RTU 100 ML IV SCH (05:14)
[2018-01-25] MEDS: PIPERACILLIN SODIUM/TAZOBACTAM 3.375 GM in NORMAL SALINE 100 ML IV SCH ×3 (06:02→18:29)
[2018-01-25 07:20] LABS: ABSOLUTE EOSINOPHILS # (AUTO) 0.1 10^3/uL (0.0-0.6); ABSOLUTE LYMPHOCYTES (AUTO) 0.5 10^3/uL (0.5-4.7); ABSOLUTE MONOCYTES (AUTO) 0.6 10^3/uL (0.1-1.4); ABSOLUTE NEUT (AUTO) 6.1 10^3/uL (1.7-8.2); BASOPHILS % (AUTO) 0.5 % (0-2); EOSINOPHILS % (AUTO) 0.7 % (0-6); HEMATOCRIT 25.4 % (37.9-51.0); HEMOGLOBIN 8.7 g/dL (13.5-17.0); MEAN CORPUSCULAR HEMOGLOBIN 29.7 pg (27.0-33.4); MEAN CORPUSCULAR HGB CONC 34.2 g/dL (32.0-36.0); MEAN CORPUSCULAR VOLUME 87 fl (80-97); MONOCYTES % (AUTO) 8.3 % (3-13); PLATELET COUNT 417 10^3/uL (150-450); RED BLOOD COUNT 2.92 10^6/uL (4.35-5.55); RED CELL DISTRIBUTION WIDTH 14.2 % (11.5-14.0); SEGMENTED NEUTROPHILS % (AUTO) 83.5 % (42-78); TOTAL CELLS COUNTED % (AUTO) 100 %; WHITE BLOOD COUNT 7.3 10^3/uL (4.0-10.5)
[2018-01-25 07:57] LABS: ALANINE AMINOTRANSFERASE 34 U/L (21-72); ALBUMIN 3.1 g/dL (3.5-5.0); ALKALINE PHOSPHATASE 52 U/L (38-126); ANION GAP 13 (5-19); ASPARTATE AMINO TRANSFERASE 22 U/L (17-59); BILIRUBIN,DIRECT 0.4 mg/dL (0.0-0.4); BILIRUBIN,TOTAL 0.4 mg/dL (0.2-1.3); BLOOD UREA NITROGEN 9 mg/dL (7-20); CALCIUM 9.1 mg/dL (8.4-10.2); CARBON DIOXIDE 24 mmol/L (22-30); CHLORIDE 103 mmol/L (98-107); GLUCOSE 92 mg/dL (75-110); POTASSIUM 4.6 mmol/L (3.6-5.0); SODIUM 140.2 mmol/L (137-145); TOTAL PROTEIN 6.4 g/dL (6.3-8.2)
[2018-01-25] MEDS ORDERED: DOCUSATE SODIUM 100 MG CAPSULE PO SCH (10:00)
[2018-01-25] MEDS: DOCUSATE SODIUM 100 MG CAPSULE PO SCH ×2 (10:32→18:30)
--- NOTE | 2018-01-25 13:58 | PDOC PROGRESS REPORT ---
Subjective Progress Note for:: 01/25/18 Subjective:: No overnight events. Continues to complain of pain with any type of movement. Pain related to drain that was placed. No documented fevers however patient warm overnight. Tolerating PO. No other complaints. Reason For Visit: POST OP INTRA-ABDOMINAL ABSCESS Physical Exam Vital Signs: Temp Pulse Resp BP Pulse Ox 98.3 F 77 16 125/65 96 01/25/18 04:35 01/25/18 11:20 01/25/18 11:20 01/25/18 04:35 01/25/18 11:20 Intake & Output 01/24/18 01/25/18 01/26/18 06:59 06:59 06:59 Output Total 750 Balance -750 Weight 81.7 kg General appearance: PRESENT: cooperative, mild distress - Secondary to pain Head exam: PRESENT: normocephalic Mouth exam: PRESENT: moist Respiratory exam: PRESENT: unlabored Cardiovascular exam: PRESENT: +S1, +S2 GI/Abdominal exam: PRESENT: soft, tenderness Neurological exam: PRESENT: alert, awake, CN II-XII grossly intact Psychiatric exam: PRESENT: appropriate affect Results Laboratory Results: 01/25/18 06:13 01/25/18 06:13 01/24/18 01/24/18 01/25/18 13:17 19:34 06:13 WBC 7.3 RBC 2.92 L Hgb 8.7 L Hct 25.4 L MCV 87 MCH 29.7 MCHC 34.2 RDW 14.2 H Plt Count 417 Seg Neutrophils % 83.5 H Lymphocytes % 7.0 L Monocytes % 8.3 Eosinophils % 0.7 Basophils % 0.5 Absolute Neutrophils 6.1 Absolute Lymphocytes 0.5 Absolute Monocytes 0.6 Absolute Eosinophils 0.1 Absolute Basophils 0.0 Sodium 138.6 Potassium 4.4 Chloride 99 Carbon Dioxide 26 Anion Gap 14 BUN 10 Creatinine 0.76 Est GFR ( Amer) > 60 Est GFR (Non-Af Amer) > 60 Glucose 95 Lactic Acid 0.8 Calcium 9.2 Phosphorus 4.5 Magnesium 2.2 Total Bilirubin AST ALT Alkaline Phosphatase Total Protein Albumin 3.5 01/25/18 06:13 WBC RBC Hgb Hct MCV MCH MCHC RDW Plt Count Seg Neutrophils % Lymphocytes % Monocytes % Eosinophils % Basophils % Absolute Neutrophils Absolute Lymphocytes Absolute Monocytes Absolute Eosinophils Absolute Basophils Sodium 140.2 Potassium 4.6 Chloride 103 Carbon Dioxide 24 Anion Gap 13 BUN 9 Creatinine 0.75 Est GFR ( Amer) > 60 Est GFR (Non-Af Amer) > 60 Glucose 92 Lactic Acid Calcium 9.1 Phosphorus Magnesium 2.2 Total Bilirubin 0.4 AST 22 ALT 34 Alkaline Phosphatase 52 Total Protein 6.4 Albumin 3.1 L Impressions: Percutaneous Drainage 01/24/18 00:00 IMPRESSION: CT GUIDED PELVIC ABSCESS DRAINAGE CATHETER PLACEMENT. NO IMMEDIATE COMPLICATIONS. IV CONSCIOUS SEDATION Abdomen/Pelvis CT 01/24/18 09:17 IMPRESSION: Abscess cavity in the right lower quadrant extending down into the pelvic cul-de-sac. Assessment & Plan - Diagnosis (1) Intra-abdominal abscess Is this a current diagnosis for this admission?: Yes Plan: Recent laparoscopic appendectomy at [facility]. Presented here for admission in December with hemorrhagic shock secondary to this laparoscopic appendectomy. Patient was doing well and discharged on 01/10/2018. Subsequently became more fatigued and tired and his abdomen became more painful. Describes a diffuse lower lower right and left quadrant abdominal pain. At home had fevers, Tmax 101-102. At presentation was found to have pelvic abscess on CT A/P. IR placed drain on . iHe was started on broad-spectrum antibiotic coverage including Flagyl, Zosyn, vancomycin. Blood cultures NGTD. Abdominal fluid culture growing GNR * 2 different organisms. Narrowed abx to only Zosyn on 01/25. Vanc and Flagyl discontinued Surgery also following, appreciate continued recs (2) Inadequate pain control Is this a current diagnosis for this admission?: Yes Plan: Continues to have "10/10" abdominal pain. This is likely due to abdominal drain. - Has Fentanyl patched ordered. Also has PRNs with IV morphine, PO Orchard 10- 325mg tabs q4 PRN, and tylenol ordered - Discontinued IV Fentanyl today (3) Post-op bleeding Qualifiers: Surgical complication system/body Area: circulatory system Procedure type: non-circulatory Qualified Code(s): I97.620 - Postprocedural hemorrhage of a circulatory system organ or structure following other procedure Is this a current diagnosis for this admission?: Yes Plan: Baseline Hg is ~10-11. Currently 8.7 on 01/25. No evidence of active bleeding. CTM with daily labs. - Time Time Spent with patient: Less than 15 minutes Anticipated discharge: Home with Homehealth Within: within 48 hours
[2018-01-25] MEDS: HYDROCODONE/ACETAMINOPHEN 10-325 MG TABLET PO PRN ×2 (15:42→22:18)
[2018-01-25] MEDS ORDERED: SIMETHICONE 80 MG TAB.CHEW PO PRN (16:17)
--- NOTE | 2018-01-25 21:39 | PDOC PROGRESS REPORT ---
Subjective Progress Note for:: 01/25/18 Subjective:: This is a 62-year-old male who is status post laparoscopic appendectomy. The patient had a return to the operating room for bleeding, which was controlled with clips. The patient was discharged home several days ago and returned to the hospital with fevers, chills, and an elevated white blood cell count. A CT scan revealed a large intra-abdominal abscess in the pelvis. Patient is status post CT-guided drainage placement. Currently the patient reports pain is back the drain is placed. He denies fevers, chills, nausea, vomiting, dizziness, orthostasis, chest pain, shortness of breath, fatigue. Reason For Visit: POST OP INTRA-ABDOMINAL ABSCESS Physical Exam Vital Signs: Temp Pulse Resp BP Pulse Ox 98.9 F 78 20 138/58 H 98 01/25/18 16:55 01/25/18 16:55 01/25/18 16:55 01/25/18 16:55 01/25/18 16:55 Intake & Output 01/24/18 01/25/18 01/26/18 06:59 06:59 06:59 Output Total 970 Balance -970 Weight 81.7 kg General appearance: PRESENT: no acute distress Head exam: PRESENT: atraumatic, normocephalic Eye exam: PRESENT: EOMI, PERRLA. ABSENT: scleral icterus Mouth exam: PRESENT: moist, neck supple Teeth exam: ABSENT: poor dentation Neck exam: ABSENT: lymphadenopathy, meningismus, tenderness, thyromegaly, tracheal deviation Respiratory exam: PRESENT: unlabored. ABSENT: chest wall tenderness, tachypnea , wheezes Pulses: PRESENT: normal radial pulses Vascular exam: PRESENT: normal capillary refill. ABSENT: pallor GI/Abdominal exam: PRESENT: distended - Mild, soft, tenderness - Mild suprapubic. ABSENT: guarding, hernia, rebound Extremities exam: ABSENT: tenderness Musculoskeletal exam: PRESENT: normal inspection Neurological exam: PRESENT: alert, awake, oriented to person, oriented to place , oriented to time, oriented to situation, CN II-XII grossly intact. ABSENT: motor sensory deficit Psychiatric exam: ABSENT: agitated, anxious, depressed Skin exam: ABSENT: cyanosis, erythema, jaundice Results Laboratory Results: 01/25/18 06:13 01/25/18 06:13 01/25/18 01/25/18 06:13 06:13 WBC 7.3 RBC 2.92 L Hgb 8.7 L Hct 25.4 L MCV 87 MCH 29.7 MCHC 34.2 RDW 14.2 H Plt Count 417 Seg Neutrophils % 83.5 H Lymphocytes % 7.0 L Monocytes % 8.3 Eosinophils % 0.7 Basophils % 0.5 Absolute Neutrophils 6.1 Absolute Lymphocytes 0.5 Absolute Monocytes 0.6 Absolute Eosinophils 0.1 Absolute Basophils 0.0 Sodium 140.2 Potassium 4.6 Chloride 103 Carbon Dioxide 24 Anion Gap 13 BUN 9 Creatinine 0.75 Est GFR ( Amer) > 60 Est GFR (Non-Af Amer) > 60 Glucose 92 Calcium 9.1 Magnesium 2.2 Total Bilirubin 0.4 AST 22 ALT 34 Alkaline Phosphatase 52 Total Protein 6.4 Albumin 3.1 L Impressions: Percutaneous Drainage 01/24/18 00:00 IMPRESSION: CT GUIDED PELVIC ABSCESS DRAINAGE CATHETER PLACEMENT. NO IMMEDIATE COMPLICATIONS. IV CONSCIOUS SEDATION Abdomen/Pelvis CT 01/24/18 09:17 IMPRESSION: Abscess cavity in the right lower quadrant extending down into the pelvic cul-de-sac. Assessment & Plan - Diagnosis (1) Intra-abdominal abscess Is this a current diagnosis for this admission?: Yes - Plan Summary Plan Summary: This is a 62-year-old male status post CT-guided drainage of an intra-abdominal abscess. The patient reports pain at the drain insertion site. Overall he is improving. Continue antibiotics. Continue drain.
[2018-01-26] MEDS: PIPERACILLIN SODIUM/TAZOBACTAM 3.375 GM in NORMAL SALINE 100 ML IV SCH ×2 (00:40→06:12)
[2018-01-26] MEDS: MORPHINE SULFATE 10 MG/ML INJ IV PRN ×4 (01:23→22:29)
[2018-01-26] MEDS: HYDROCODONE/ACETAMINOPHEN 10-325 MG TABLET PO PRN ×3 (06:11→20:09)
[2018-01-26 06:30] LABS: HEMATOCRIT 26.3 % (37.9-51.0); HEMOGLOBIN 8.8 g/dL (13.5-17.0); MEAN CORPUSCULAR HGB CONC 33.5 g/dL (32.0-36.0); MEAN CORPUSCULAR VOLUME 86 fl (80-97); PLATELET COUNT 450 10^3/uL (150-450); RED BLOOD COUNT 3.05 10^6/uL (4.35-5.55); RED CELL DISTRIBUTION WIDTH 14.6 % (11.5-14.0); WHITE BLOOD COUNT 7.9 10^3/uL (4.0-10.5)
--- NOTE | 2018-01-26 08:42 | PDOC PROGRESS REPORT ---
Subjective Progress Note for:: 01/26/18 Subjective:: Feels well. Tolerating diet well. Pain is minimal. Reason For Visit: POST OP INTRA-ABDOMINAL ABSCESS Physical Exam Vital Signs: Temp Pulse Resp BP Pulse Ox 98.7 F 71 18 119/59 L 97 01/26/18 03:31 01/26/18 03:31 01/26/18 03:31 01/26/18 03:31 01/26/18 03:31 Intake & Output 01/25/18 01/26/18 01/27/18 06:59 06:59 06:59 Output Total 1420 Balance -1420 Weight 81.7 kg 80 kg General appearance: PRESENT: no acute distress, cooperative Respiratory exam: PRESENT: clear to auscultation mitch Cardiovascular exam: PRESENT: RRR GI/Abdominal exam: PRESENT: other - Soft, protuberant, minimal tenderness. Drain output appears blood-tinged. Results Laboratory Results: 01/26/18 05:46 01/25/18 06:13 01/26/18 05:46 WBC 7.9 RBC 3.05 L Hgb 8.8 L Hct 26.3 L MCV 86 MCH 29.0 MCHC 33.5 RDW 14.6 H Plt Count 450 Impressions: Percutaneous Drainage 01/24/18 00:00 IMPRESSION: CT GUIDED PELVIC ABSCESS DRAINAGE CATHETER PLACEMENT. NO IMMEDIATE COMPLICATIONS. IV CONSCIOUS SEDATION Abdomen/Pelvis CT 01/24/18 09:17 IMPRESSION: Abscess cavity in the right lower quadrant extending down into the pelvic cul-de-sac. Assessment & Plan - Diagnosis (1) Infected hematoma following procedure Is this a current diagnosis for this admission?: Yes Plan: Status post CT-guided drainage. Patient looks well after the procedure. Cultures grew out E. coli that is sensitive to Ancef. Will switch over to Ancef. Will obtain follow-up CT scan tomorrow. If the abscess has resolved will DC the drain tomorrow and possibly discharge home with keflex.
[2018-01-26] MEDS: DOCUSATE SODIUM 100 MG CAPSULE PO SCH ×2 (09:03→18:13)
[2018-01-26] MEDS: CEFAZOLIN 1 GM/D5W RTU 1 GM/50 ML RTUPB IV SCH ×2 (12:17→18:15)
--- NOTE | 2018-01-26 13:02 | PDOC PROGRESS REPORT ---
Subjective Progress Note for:: 01/26/18 Subjective:: No overnight events. Doing better today. Continues to have mild pain at drain site. More comfortable. Able to get out of bed to chair and bathroom. Denies fevers, chills, SOB, N/V. Good PO intake and moving bowels. No other complaints. Hopeful to have chest tube removed tomorrow and d/c to home. Reason For Visit: POST OP INTRA-ABDOMINAL ABSCESS Physical Exam Vital Signs: Temp Pulse Resp BP Pulse Ox 98.3 F 69 15 127/61 H 96 01/26/18 11:09 01/26/18 11:09 01/26/18 11:09 01/26/18 11:09 01/26/18 11:09 Intake & Output 01/25/18 01/26/18 01/27/18 06:59 06:59 06:59 Intake Total 420 Output Total 1420 Balance -1420 420 Weight 81.7 kg 80 kg General appearance: PRESENT: no acute distress, cooperative, well-developed, well-nourished Head exam: PRESENT: normocephalic Mouth exam: PRESENT: moist Respiratory exam: PRESENT: unlabored. ABSENT: tachypnea Cardiovascular exam: PRESENT: +S1, +S2. ABSENT: tachycardia GI/Abdominal exam: PRESENT: soft, tenderness, other - drain in place Extremities exam: ABSENT: +1 edema Neurological exam: PRESENT: alert, awake, CN II-XII grossly intact Psychiatric exam: PRESENT: appropriate affect Skin exam: PRESENT: dry, warm Results Laboratory Results: 01/26/18 05:46 01/25/18 06:13 01/26/18 05:46 WBC 7.9 RBC 3.05 L Hgb 8.8 L Hct 26.3 L MCV 86 MCH 29.0 MCHC 33.5 RDW 14.6 H Plt Count 450 Impressions: Percutaneous Drainage 01/24/18 00:00 IMPRESSION: CT GUIDED PELVIC ABSCESS DRAINAGE CATHETER PLACEMENT. NO IMMEDIATE COMPLICATIONS. IV CONSCIOUS SEDATION Abdomen/Pelvis CT 01/24/18 09:17 IMPRESSION: Abscess cavity in the right lower quadrant extending down into the pelvic cul-de-sac. Assessment & Plan - Diagnosis (1) Intra-abdominal abscess Is this a current diagnosis for this admission?: Yes Plan: Recent laparoscopic appendectomy at [facility]. Presented here for admission in December with hemorrhagic shock secondary to this laparoscopic appendectomy. Patient was doing well and discharged on 01/10/2018. Subsequently became more fatigued and tired and his abdomen became more painful. Describes a diffuse lower lower right and left quadrant abdominal pain. At home had fevers, Tmax 101-102. At presentation was found to have pelvic abscess on CT A/P. IR placed drain on . He was started on broad-spectrum antibiotic coverage including Flagyl, Zosyn, vancomycin. - Blood cultures NGTD. Abdominal fluid culture growing 2 strains of E. coli. - Was on Vanc and Flagyl --> changed to Zosyn on 01/25. Currently on IV Ancef. - Plan to repeat CT A/P on 01/26 and remove drain - At discharge likely can be placed on PO Keflex. - Surgery also following, appreciate continued recs (2) Inadequate pain control Is this a current diagnosis for this admission?: Yes Plan: Improved pain today, mostly abdominal drain related pain - Continue Fentanyl patch, PRNs with IV morphine, PO [place] 10-325mg tabs q4 PRN , and tylenol - Likely will not need usp narcotic at discharge once drain is removed (3) Post-op bleeding Qualifiers: Surgical complication system/body Area: circulatory system Procedure type: non-circulatory Qualified Code(s): I97.620 - Postprocedural hemorrhage of a circulatory system organ or structure following other procedure Is this a current diagnosis for this admission?: Yes Plan: Baseline Hg is ~10-11. Currently stable, 8.8 on 01/26. No evidence of active bleeding. CTM with daily labs. - Time Time Spent with patient: Less than 15 minutes Anticipated discharge: Home Within: within 24 hours - Inpatient Certification Medical Necessity: Need for IV Antibiotics - Plan Summary Plan Summary: Discharge on 01/[address] scan and drain removal
[2018-01-26] MEDS ORDERED: DIPHENHYDRAMINE HCL 50 MG/ML VIAL IV PRN (18:04)
[2018-01-27] MEDS: HYDROCODONE/ACETAMINOPHEN 10-325 MG TABLET PO PRN ×3 (00:13→11:17)
[2018-01-27] MEDS: CEFAZOLIN 1 GM/D5W RTU 1 GM/50 ML RTUPB IV SCH ×3 (00:14→11:17)
[2018-01-27] MEDS: MORPHINE SULFATE 10 MG/ML INJ IV PRN (03:23)
[2018-01-27 06:46] LABS: HEMATOCRIT 29.6 % (37.9-51.0); HEMOGLOBIN 10.1 g/dL (13.5-17.0); MEAN CORPUSCULAR HEMOGLOBIN 29.1 pg (27.0-33.4); MEAN CORPUSCULAR HGB CONC 34.1 g/dL (32.0-36.0); MEAN CORPUSCULAR VOLUME 86 fl (80-97); PLATELET COUNT 505 10^3/uL (150-450); RED BLOOD COUNT 3.46 10^6/uL (4.35-5.55); RED CELL DISTRIBUTION WIDTH 14.6 % (11.5-14.0); WHITE BLOOD COUNT 7.9 10^3/uL (4.0-10.5)
--- NOTE | 2018-01-27 09:52 | PDOC PROGRESS REPORT ---
Subjective Progress Note for:: 01/27/18 Subjective:: Patient feels much better; tolerating a diet; voiding; anxious about having drain removed pain associated with it Reason For Visit: POST OP INTRA-ABDOMINAL ABSCESS Physical Exam Vital Signs: Temp Pulse Resp BP Pulse Ox 98.3 F 70 20 148/82 H 98 01/27/18 07:41 01/27/18 07:41 01/27/18 07:41 01/27/18 07:41 01/27/18 07:41 Intake & Output 01/26/18 01/27/18 01/28/18 06:59 06:59 06:59 Intake Total 1300 Output Total 1420 Balance -1420 1300 Weight 80 kg General appearance: PRESENT: no acute distress GI/Abdominal exam: PRESENT: other - Bruising resolved; operative incisions look excellent; drain with old blood liquefied ; Drain site in place. Results Laboratory Results: 01/27/18 06:27 01/25/18 06:13 01/27/18 06:27 WBC 7.9 RBC 3.46 L Hgb 10.1 L Hct 29.6 L MCV 86 MCH 29.1 MCHC 34.1 RDW 14.6 H Plt Count 505 H 01/24/18 15:00 Abdominal Fluid Gram Stain - Final 01/24/18 15:00 Abdominal Fluid Body Fluid Culture - Final Escherichia Coli Escherichia Coli#2 Prevotella Species Impressions: Percutaneous Drainage 01/24/18 00:00 IMPRESSION: CT GUIDED PELVIC ABSCESS DRAINAGE CATHETER PLACEMENT. NO IMMEDIATE COMPLICATIONS. IV CONSCIOUS SEDATION Abdomen/Pelvis CT 01/24/18 09:17 IMPRESSION: Abscess cavity in the right lower quadrant extending down into the pelvic cul-de-sac. Assessment & Plan - Diagnosis (1) Infected hematoma following procedure Is this a current diagnosis for this admission?: Yes Plan: Patient is now 3 days status post percutaneous drainage, evacuation of intra- abdominal infected hematoma, E. coli, and prevotella. 2 E. coli species sensitive to Ancef. Patient feeling better all organ systems functioning, no fever no leukocytosis Recommendations: 1. Follow-up CT scan scheduled to assess residual fluid collection 2. Patient adamant about not wanting to experience any pain during drain removal. I told him we will likely not going to remove the drain today, and that we would ensure adequate pain management during drain removal. 3. Hopefully patient can go home over the weekend with drainage and oral antibiotics.
[2018-01-27] MEDS: DOCUSATE SODIUM 100 MG CAPSULE PO SCH (11:16)
--- NOTE | 2018-01-27 11:50 | RADIOLOGY REPORT (SQ) ---
EXAM DESCRIPTION: CT ABD/PELVIS ORAL ONLY COMPLETED DATE/TIME: 01/27/2018 10:47 am REASON FOR STUDY: Please do limited CT to reevaluate abscess R10.84 GENERALIZED ABDOMINAL PAIN D50. 0 IRON DEFICIENCY ANEMIA SECONDARY TO BLOOD LOSS (CHRONI Z90.49 ACQUIRED ABSENCE OF OTHER SPECIFIED PARTS OF DIGESTIV COMPARISON: 01/24/2018. TECHNIQUE: CT scan of the abdomen and pelvis performed with oral contrast and no intravenous contras t. Images reviewed with lung, soft tissue, and bone windows. Reconstructed coronal and sagittal MPR i mages reviewed. All images stored on PACS. All CT scanners at this facility use dose modulation, iterative reconstruction, and/or weight based d osing when appropriate to reduce radiation dose to as low as reasonably achievable (ALARA). [facility]: Dose Right [facility]: CareDose [facility]: Dose Right [facility]: Teradose 4D [facility]: [employer] RADIATION DOSE: CT Rad equipment meets quality standard of care and radiation dose reduction techniq ues were employed. CTDIvol: 8.3 mGy. DLP: 450 mGy-cm.mGy. LIMITATIONS: None. FINDINGS: LOWER CHEST: No significant findings. No nodules or infiltrates. NON-CONTRASTED LIVER, SPLEEN, ADRENALS: Evaluation limited by lack of IV contrast. No identified sign ificant masses. PANCREAS: No masses. No peripancreatic inflammatory changes. GALLBLADDER: No identified stones by CT criteria. No inflammatory changes to suggest cholecystitis. RIGHT KIDNEY AND URETER: No solid masses. No significant calcification. No hydronephrosis or hydroure ter. LEFT KIDNEY AND URETER: No solid masses. No significant calcification. No hydronephrosis or hydrouret er. AORTA AND RETROPERITONEUM: No aneurysm. No retroperitoneal masses or adenopathy. BOWEL AND PERITONEAL CAVITY: No obvious masses or inflammatory changes. No free fluid. APPENDIX: Surgically absent. PELVIS, BLADDER, AND ABDOMINAL WALL: Pigtail drainage catheter remains in place within the pelvic flu id collection. The fluid collection has decreased in size. There is residual portion in the right l ower quadrant adjacent to the surgical site with few bubbles of gas within the lumen. No abdominal wa ll hernias. Bladder unremarkable. BONES: No significant findings. OTHER: No other significant finding. IMPRESSION: PIGTAIL DRAINAGE CATHETER REMAINS IN PLACE WITHIN THE PELVIC FLUID COLLECTION WITH SOME DECREASE IN SIZE. NO OTHER SIGNIFICANT FINDINGS IN THE ABDOMEN OR PELVIS. PREVIOUSLY THERE WERE ISSUES WITH THE DRAINAGE CATHETER. WHEN SUCTION WAS APPLIED THERE WAS AIR ASPI RATED THROUGH THE CATHETER AND SUCTION WAS CHANGED TO GRAVITY DRAINAGE. TODAY THE CATHETER WAS FLUSH ED AND IT WAS NOTED THAT THE STOPCOCK WAS LOOSE. THE STOPCOCK WAS REPLACED AND THE CATHETER WAS FLUS HED WITH NO ASPIRATION OF AIR. THE CATHETER WAS SUBSEQUENTLY PLACED TO SUCTION DRAINAGE. TECHNICAL DOCUMENTATION: JOB ID: [id number] Quality ID # [id number]: Final reports with documentation of one or more dose reduction techniques (e.g., Au tomated exposure control, adjustment of the mA and/or kV according to patient size, use of iterative reconstruction technique) 2010 [employer]- All Rights Reserved Reading location - IP/workstation name: [email or web address]
[2018-01-27 13:39] VITALS: BP 147/81
--- NOTE | 2018-01-27 16:53 | PDOC DISCHARGE SUMMARY ---
General - Admit/Disc Date/PCP Admission Date/Primary Care Provider: 01/24/18 14:28 Discharge Date: 01/27/18 - Discharge Diagnosis (1) Infected hematoma following procedure Is this a current diagnosis for this admission?: Yes (2) Intra-abdominal abscess Is this a current diagnosis for this admission?: Yes - Additional Information Discharge Diet: Regular Discharge Activity: Activity As Tolerated, No Lifting Over 10 Pounds, No tub bath Home Medications: Docusate Sodium [Colace 100 mg Capsule] 100 mg PO BID capsule 01/10/18 Hydrocodone/Acetaminophen [Hydrocodon-Acetaminophen 5-325] 1 each PO Q6HP PRN Multivitamin/Iron/Folic Acid [One Daily Multivitamin-Iron Tb] 1 each PO DAILY Psyllium Seed [Metamucil-Sf Powder 5.85 gm Packet] 1 packet PO ASDIR PRN MDD 14- DAY CLEANSE 01/24/18 Simethicone [Gas-X Ultra Strength] 180 mg PO BIDP PRN 01/24/18 History of Present Illness History of Present Illness: FEDE DOMINGO is a 62 year old man With past medical history of laparoscopic appendectomy performed at [facility] , and recent admission and discharge on 01/10/2018 for hemorrhagic shock secondary to bleeding appendiceal artery. At that time he spent multiple days in the ICU and was doing well. Was discharged home and states that for the first several days he was feeling well and then after 3 days at home he started to feel fatigued and tired and noticed that his temperature was periodically elevated ranging from 101-102. He communicated this back to the surgery group and received a CT of his abdomen and pelvis today which showed significant pelvic abscess. Medicine agreed to admit the patient for drain placement by interventional radiology and escalation of antibiotics and close monitoring. Physical Exam Vital Signs: Temp Pulse Resp BP Pulse Ox 98.5 F 82 16 147/81 H 97 01/27/18 13:46 01/27/18 13:46 01/27/18 13:46 01/27/18 13:46 01/27/18 13:46 Intake & Output 01/26/18 01/27/18 01/28/18 06:59 06:59 06:59 Intake Total 1300 Output Total 1420 Balance -1420 1300 Weight 80 kg General appearance: PRESENT: no acute distress, cooperative, well-developed, well-nourished Head exam: PRESENT: atraumatic Eye exam: ABSENT: conjunctival injection, scleral icterus Mouth exam: PRESENT: moist, neck supple Respiratory exam: PRESENT: clear to auscultation mitch. ABSENT: rales, rhonchi, wheezes GI/Abdominal exam: PRESENT: normal bowel sounds, soft. ABSENT: distended, firm , tenderness Extremities exam: ABSENT: pedal edema Neurological exam: PRESENT: alert, awake, oriented to person, oriented to place , oriented to situation, CN II-XII grossly intact Psychiatric exam: PRESENT: appropriate affect. ABSENT: anxious Skin exam: PRESENT: dry, intact, warm Results Laboratory Results: 01/27/18 06:27 01/25/18 06:13 01/27/18 06:27 WBC 7.9 RBC 3.46 L Hgb 10.1 L Hct 29.6 L MCV 86 MCH 29.1 MCHC 34.1 RDW 14.6 H Plt Count 505 H 01/24/18 15:00 Abdominal Fluid Gram Stain - Final 01/24/18 15:00 Abdominal Fluid Body Fluid Culture - Final Escherichia Coli Escherichia Coli#2 Prevotella Species Impressions: Percutaneous Drainage 01/24/18 00:00 IMPRESSION: CT GUIDED PELVIC ABSCESS DRAINAGE CATHETER PLACEMENT. NO IMMEDIATE COMPLICATIONS. IV CONSCIOUS SEDATION Abdomen/Pelvis CT 01/27/18 09:00 IMPRESSION: PIGTAIL DRAINAGE CATHETER REMAINS IN PLACE WITHIN THE PELVIC FLUID COLLECTION WITH SOME DECREASE IN SIZE. NO OTHER SIGNIFICANT FINDINGS IN THE ABDOMEN OR PELVIS. PREVIOUSLY THERE WERE ISSUES WITH THE DRAINAGE CATHETER. WHEN SUCTION WAS APPLIED THERE WAS AIR ASPIRATED THROUGH THE CATHETER AND SUCTION WAS CHANGED TO GRAVITY DRAINAGE. TODAY THE CATHETER WAS FLUSHED AND IT WAS NOTED THAT THE STOPCOCK WAS LOOSE. THE STOPCOCK WAS REPLACED AND THE CATHETER WAS FLUSHED WITH NO ASPIRATION OF AIR. THE CATHETER WAS SUBSEQUENTLY PLACED TO SUCTION DRAINAGE. Qualifiers - * PATIENT BEING DISCHARGED WITH ANY OF THE FOLLOWING DIAGNOSIS: No Plan Discharge Plan: Patient has been evaluated by the surgeon today and the plan is for DC to home with intra abd drain in place. Patient had CT of the abdomen which showed improvement but not resolution of the intra-abdominal, postoperative abscess. He will be followed as an outpatient in the surgery clinic. He and his are being taught how to use the drain as an outpatient. She is discharged with Ancef to cover the 2 E. coli species found in the abscess. He is also being discharged with Percocet per the surgeon. Patient is hemodynamically stable. He is appropriate for discharge with close follow-up. Time Spent: Less than 30 Minutes
== END 2018-01-27 14:20 | disposition home or self-care (01) | DRG 862 ==
LOC: RAD 09:07 → 2N 12:24 → RAD 14:26 → 2N 14:28
PROVIDERS: ADMIT Internal Medicine; ATTEND Internal Medicine
PROC: 0W9J30Z Drainage of Pelvic Cavity with Drainage Device, Percutaneous Approach (ICD-10-PCS; principal; 2018-01-24)
PROC: BW21ZZZ Computerized Tomography (CT Scan) of Abdomen and Pelvis (ICD-10-PCS; 2018-01-24)
DX: T81.4XXA Infection following a procedure, initial encounter (principal); K65.1 Peritoneal abscess; D50.0 Iron deficiency anemia secondary to blood loss (chronic); G89.18 Other acute postprocedural pain; B96.20 Unspecified Escherichia coli [E. coli] as the cause of diseases classified elsewhere; B96.89 Other specified bacterial agents as the cause of diseases classified elsewhere
CPT/HCPCS: 36415; 74176; 74177; 75989; 80053; 80069; 82565; 83605; 83735; 85025; 85027; 87040; 87070; 87075; 87077; 87186; 87205; C1729; C1769; C1892; C1894; J0690; J1885; J2250; J2270; J2543; J3010; J3370; J3490; J7060; J7120

== ENCOUNTER → 2018-01-30 | Outpatient (CLI) | payer SELFPAY ==
[2018-01-30 10:28] LABS: ABSOLUTE BASOPHILS # (AUTO) 0.1 10^3/uL (0.0-0.2); ABSOLUTE EOSINOPHILS # (AUTO) 0.1 10^3/uL (0.0-0.6); ABSOLUTE LYMPHOCYTES (AUTO) 0.8 10^3/uL (0.5-4.7); ABSOLUTE MONOCYTES (AUTO) 0.6 10^3/uL (0.1-1.4); ABSOLUTE NEUT (AUTO) 7.3 10^3/uL (1.7-8.2); BASOPHILS % (AUTO) 1.2 % (0-2); EOSINOPHILS % (AUTO) 1.6 % (0-6); HEMATOCRIT 30.8 % (37.9-51.0); HEMOGLOBIN 10.3 g/dL (13.5-17.0); LYMPHOCYTES % (AUTO) 9.2 % (13-45); MEAN CORPUSCULAR HEMOGLOBIN 28.5 pg (27.0-33.4); MEAN CORPUSCULAR HGB CONC 33.3 g/dL (32.0-36.0); MEAN CORPUSCULAR VOLUME 86 fl (80-97); MONOCYTES % (AUTO) 7.1 % (3-13); PLATELET COUNT 477 10^3/uL (150-450); RED BLOOD COUNT 3.61 10^6/uL (4.35-5.55); RED CELL DISTRIBUTION WIDTH 14.9 % (11.5-14.0); SEGMENTED NEUTROPHILS % (AUTO) 80.9 % (42-78); TOTAL CELLS COUNTED % (AUTO) 100 %
== END ==
LOC: OD 09:55
PROVIDERS: ATTEND Surgery
DX: Z90.49 Acquired absence of other specified parts of digestive tract (principal)
CPT/HCPCS: 36415; 85025

== ENCOUNTER → 2018-02-06 | Outpatient (CLI) | payer SELFPAY ==
--- NOTE | 2018-02-06 15:13 | RADIOLOGY REPORT (SQ) ---
EXAM DESCRIPTION: CT ABD/PELVIS WITH IV ORAL COMPLETED DATE/TIME: 02/06/2018 2:52 pm REASON FOR STUDY: PELVIC ABSCESS IN MALE K65.1 PERITONEAL ABSCESS COMPARISON: 01/27/2018 and 01/24/2018. TECHNIQUE: CT scan of the abdomen and pelvis performed using helical scanning technique with dynamic intravenous contrast injection and with oral contrast. Images reviewed with lung, soft tissue, and b one windows. Reconstructed coronal and sagittal MPR images reviewed. Delayed images were not acquired . All images stored on PACS. All CT scanners at this facility use dose modulation, iterative reconstruction, and/or weight based d osing when appropriate to reduce radiation dose to as low as reasonably achievable (ALARA). [facility]: Dose Right [facility]: CareDose [facility]: Dose Right [facility]: Teradose 4D [facility]: [employer] CONTRAST TYPE AND DOSE: contrast/concentration: Isovue 370.00 mg/ml; Total Contrast Delivered: 89.0 ml; Total Saline Delivered: 68.0 ml RENAL FUNCTION: BUN 9 creatinine 0.75. RADIATION DOSE: CT Rad equipment meets quality standard of care and radiation dose reduction techniq ues were employed. CTDIvol: 8.4 - 9.8 mGy. DLP: 952 mGy-cm.. LIMITATIONS: None. FINDINGS: LOWER CHEST: No significant findings. No nodules or infiltrates. LIVER: Normal size. No masses. No dilated ducts. SPLEEN: Normal size. No focal lesions. PANCREAS: No masses. No significant calcifications. No adjacent inflammation or peripancreatic fluid collections. Pancreatic duct not dilated. GALLBLADDER: No identified stones by CT criteria. No inflammatory changes to suggest cholecystitis. ADRENAL GLANDS: No significant masses or asymmetry. RIGHT KIDNEY AND URETER: No solid masses. No significant calcifications. No hydronephrosis or hyd roureter. LEFT KIDNEY AND URETER: No solid masses. No significant calcifications. No hydronephrosis or hydr oureter. AORTA AND VESSELS: No aneurysm. No dissection. Renal arteries, SMA, celiac without stenosis. RETROPERITONEUM: No retroperitoneal adenopathy, hemorrhage or masses. BOWEL AND PERITONEAL CAVITY: No masses or inflammatory changes. No free fluid or peritoneal masses. APPENDIX: Normal. PELVIS: The previously seen pelvic abscess has almost completely resolved. There is minimal fluid an d gas adjacent to surgical clips in the right lower quadrant, measuring less than 1 cm. The pigtail catheter is in stable position between the bladder and rectum. ABDOMINAL WALL: No masses. No hernias. BONES: No significant or acute findings. OTHER: No other significant finding. IMPRESSION: 1. PELVIC ABSCESS HAS ALMOST COMPLETELY RESOLVED. VERY MINIMAL FLUID AND GAS AT THE SURGICAL SITE. THE PATIENT'S SURGEON WILL BE CONTACTED REGARDING ARRANGEMENTS TO REMOVE THE CATHETER. 2. NO OTHER SIGNIFICANT OR ACUTE FINDING IN THE ABDOMEN OR PELVIS ON CT SCAN WITH ORAL AND IV CONTRAS T. TECHNICAL DOCUMENTATION: JOB ID: [id number] Quality ID # [id number]: Final reports with documentation of one or more dose reduction techniques (e.g., Au tomated exposure control, adjustment of the mA and/or kV according to patient size, use of iterative reconstruction technique) 2010 [employer]- All Rights Reserved Reading location - IP/workstation name: [email or web address]
== END ==
LOC: RAD 13:57
PROVIDERS: ATTEND Physician Assistant Surgical
DX: K65.1 Peritoneal abscess (principal)
CPT/HCPCS: 74177

== ENCOUNTER 2018-02-09 06:31 | Day surgery (SDC) | payer SELFPAY ==
[2018-02-09] MEDS ORDERED: FENTANYL CITRATE INJ/PF 100 MCG/2 ML AMPUL ONE (08:02)
[2018-02-09] MEDS ORDERED: MIDAZOLAM 2 MG/2 ML INJ ONE (08:02)
[2018-02-09] MEDS ORDERED: MIDAZOLAM HCL INJ 5 MG/1 ML VIAL ONE (08:24)
[2018-02-09 10:32] VITALS: BP 142/79
--- NOTE | 2018-02-10 11:16 | Operative Report ---
Nonrecallable Operative Report DATE OF SURGERY: 02/09/18 PREOPERATIVE DIAGNOSIS: Intra-abdominal abscess, indwelling drainage catheter POSTOPERATIVE DIAGNOSIS: Same as above OPERATION: 1. Conscious sedation. 2. Removal of percutaneously inserted intra -abdominal drain SURGEON: BELEN RYAN ANESTHESIA: Moderate Sedation TISSUE REMOVED OR ALTERED: Intra-abdominal drain COMPLICATIONS: None apparent ESTIMATED BLOOD LOSS: None PROCEDURE: Procedure in detail: After informed consent was obtained from the patient he was laid in the right lateral decubitus position in the [employer]. The patient had a previously placed percutaneous posterior intra-abdominal drain. The patient experienced severe pain from the drain due to its position near the sacrum. 5 mg of Versed and 100 mcg of fentanyl were administered to the patient for conscious sedation and pain control. The catheter was then removed. Bleeding was encountered. A dressing was fashioned, and the procedure was concluded. All sponge, instrument, and needle counts were correct 2. Condition: Stable.
--- NOTE | 2018-02-10 11:17 | Discharge Summary ---
Discharge Summary (SDC) - Discharge Final Diagnosis: intra-abdominal abscess, with indwelling percutaneous catheter Date of Surgery: 02/09/18 Discharge Date: 02/09/18 Condition: Stable Forms: ASU Anesthesia D/C Instruction, Discharge POC-Surgical Service Referrals: BELEN RYAN MD [ACTIVE STAFF] - 02/20/18 10:30 am Respiratory Treatments at Home: Deep Breathing/Coughing Discharge Activity: Activity As Tolerated, Balance Activity w/Rest, Energy Conservation, No Lifting Over 10 Pounds, No Lifting/Push/Pulling, Slowly Increase Activity, No tub bath, Walk Frequently Home Care Assistance: None Needed Report the Following to Your Physician Immediately: Shortness of Breath, Nausea , Vomiting, Increase in Pain, Fever over 101 Degrees, Unusual Bleeding, Redness , Swelling, Warmth, Increased Soreness, Drainage-Yellow, Drainage-[place], Drainage -Green, Drainage-Foul Smelling, IV Site Infection Signs
== END 2018-02-09 10:30 | disposition home or self-care (01) ==
LOC: CCL 06:31
PROVIDERS: ATTEND Surgery
DX: K65.1 Peritoneal abscess (principal); Z46.82 Encounter for fitting and adjustment of non-vascular catheter; D50.0 Iron deficiency anemia secondary to blood loss (chronic); R30.0 Dysuria; Z79.899 Other long term (current) drug therapy; Z79.891 Long term (current) use of opiate analgesic
CPT/HCPCS: 77001; 49422; J2250; J3010; J3490